=== PATIENT | female | born 1980 | race Caucasian/White ===

== ENCOUNTER 2024-02-06 02:54 | Observation (INO) | payer SELFPAY ==
[2024-02-06] VITALS (44 sets, daily range): BP systolic 137–169; BP diastolic 88–126; PULSE 75–115; RESP 8–24; TEMP 36.3–36.9; O2SAT 88–100; BMI 44.2; BMI 39.1
--- NOTE | 2024-02-06 03:17 | XRR_ITS ---
PROCEDURE INFORMATION: Exam: XR Chest Exam date and time: 02/06/2024 3:17 AM Age: 43 years old Clinical indication: Shortness of breath; Patient HX: C/O SOB. History of copd. TECHNIQUE: Imaging protocol: Radiologic exam of the chest. Views: 1 view. COMPARISON: No relevant prior studies available. FINDINGS: Lungs: Unremarkable. No consolidation. Pleural spaces: Unremarkable. No pleural effusion. No pneumothorax. Heart/Mediastinum: Unremarkable. No cardiomegaly. Bones/joints: Unremarkable. XR/XR chest 1V portable [id number] IMPRESSION: No acute findings.
--- NOTE | 2024-02-06 03:18 | ED_ITS ---
HPI - SOB/Dyspnea 2 General: Chief Complaint: Shortness of Breath/Dyspnea Stated Complaint: SOB Time Seen by Provider: 02/06/24 03:07 History of Present Illness: HPI Narrative: This 43-year-old female with a history of COPD evidently. She has been short of breath. She has been wheezing. She was doing a breathing treatment at home, and family noticed that she seemed to pass out. CPR was performed by bystanders/first responders. On EMS arrival, she was awake and able to answer questions. She received 2 breathing treatments, Solu-Medrol en route. She complains of chest pain and tenderness. Related Data Previous Rx's Medication Instructions Recorded albuterol sulfate 90 mcg/actuation 1 inh inhalation Q6H PRN shortness 02/07/24 aerosol inhaler (Ventolin HFA) of breath or wheezing #6.7 grams amlodipine 5 mg tablet 5 mg PO DAILY #30 tabs 02/07/24 aspirin 81 mg capsule 81 mg PO DAILY #30 caps 02/07/24 atorvastatin 40 mg tablet 40 mg PO BEDTIME #30 tabs 02/07/24 budesonide 0.5 mg/2 mL suspension 0.5 mg (2 mL) inhalation 02/07/24 for nebulization BID.RESPIRATORY #120 mL doxycycline monohydrate 100 mg 100 mg PO BID #10 tabs 02/07/24 tablet ipratropium 0.5 mg-albuterol 3 mg 3 ml inhalation QID.RESPIRATORY 02/07/24 (2.5 mg base)/3 mL nebulization #360 mL soln loratadine 10 mg capsule 10 mg PO DAILY #30 caps 02/07/24 metoprolol tartrate 25 mg tablet 25 mg PO BID@0900,2100 #60 tabs 02/07/24 montelukast 10 mg tablet 10 mg PO DAILY #30 tabs 02/07/24 (Singulair) Allergies Allergy/AdvReac Type Severity Reaction Status Date / Time No Known Allergies Allergy Verified 02/06/24 02:57 [facility] ED 2 Female Reproductive History: Date of last menstrual period: 02/06/24 Physical Exam 2 Const: EXAM LIMITATIONS: altered mental status GENERAL APPEARANCE: c ooperative, lethargic, ill appearing (Mildly) and appears older than stated age; not frail appearing NUTRITIONAL APPEARANCE: obese O RIENTATION/CONSCIOUSNESS: Yes lethargic HENMT: COMMON NORMALS: normocephalic, atraumatic and Normal external nose present HEAD & SCALP: normocephalic and atraumatic FACE & SINUS: normal facial exam and face symmetric NOSE: Normal external nose present Eye: COMMON NORMALS: Equal, round and reactive pupils present and EOMs intact bilaterally PUPIL: Yes Equal, round and reactive pupils present Neck/C-Spine: GENERAL: Yes trachea midline Chest: CHEST: Yes Symmetrical chest wall rise and Yes tenderness (Diffusely) Resp: EFFORT & INSPECTION: Yes tachypneic and No labored AUSCULTATION: w heezes Cardio: COMMON NORMALS: regular rhythm RATE: tachycardic RHYTHM: regular rhythm GI: COMMON NORMALS: Normal to inspection, nondistended, normoactive bowel sounds present Extremity: COMMON NORMALS: no pedal edema Neuro: [place] COMA SCALE: document GCS findings [place] coma scale eye opening: Spontaneous [place] coma scale verbal response: Orientated [place] coma scale motor response: Obey commands [place] coma scale total score: 15 S ENSORIUM/ORIENTATION: Yes lethargic SENSORY EXAM: Yes extremities (intact) Psych: COMMON NORMALS: speech normal SPEECH: Yes normal speech Skin: COMMON NORMALS: no rashes or lesions noted GENERAL SKIN EXAM: no rashes or lesions noted Course 2 Vital Signs: Vital signs: Vital Signs Temperature 98.1 F 02/07/24 11:58 Pulse Rate 94 02/07/24 13:01 Respiratory Rate 18 02/07/24 13:01 Blood Pressure 155/93 02/07/24 13:01 Pulse Oximetry 91 02/07/24 13:01 Oxygen Delivery Me thod Room Air 02/07/24 11:58 Oxygen Flow Rate 2 02/06/24 05:00 MDM - SOB/Dyspnea Medical Decision Making Patient arrives lethargic. She is requiring oxygen. Tachycardic. Improved after treatment. Her troponin is elevated. EKG not remarkable. D d-coleen is normal. With significant trop elevation without evidence of PE or significant HTN, other causes, ACS must be ruled out appropriately. She will be observed. serial troponins. continued treatment of SOB. Hospitalist will see the patient. Lab Data 02/07/24 04:02 02/07/24 04:02 Labs/Radiology: Radiology Impressions Chest X-Ray 02/06/24 03:17 IMPRESSION: No acute findings. Laboratory Results WBC 12.97 10^3/uL (3.29-11.43) H 02/06/24 03:45 RBC 4.96 10^6/uL (3.85-5.65) 02/06/24 03:45 Hgb 12.90 g/dL (11.27-16.99) 02/06/24 03:45 Hct 41.9 % (36-47) 02/06/24 03:45 MCV 84.5 fl (85-98) L 02/06/24 03:45 MCH 26.0 pg (27-33) L 02/06/24 03:45 MCHC 30.8 g/dL (30-55) 02/06/24 03:45 RDW 13.8 % (12.1-15.1) 02/06/24 03:45 Plt Count 444 10^3/cmm (157-399) H 02/06/24 03:45 MPV 8.7 fL (7.4-10.4) 02/06/24 03:45 Neut % (Auto) 77.5 % 02/06/24 03:45 Lymph % (Auto) 13.2 % 02/06/24 03:45 [place] % (Auto) 4.2 % 02/06/24 03:45 Eos % (Auto) 4.0 % 02/06/24 03:45 Baso % (Auto) 0.5 % 02/06/24 03:45 Neut # (Auto) 10.06 10^3/uL (1.8-7.7) H 02/06/24 03:45 Lymph # (Auto) 1.7 10^3/uL (0.8-4.8) 02/06/24 03:45 [place] # (Auto) 0.5 10^3/uL (0.2-0.9) 02/06/24 03:45 Eos # (Auto) 0.5 10^3/uL (0.0-0.8) 02/06/24 03:45 Baso # (Auto) 0.1 10^3/uL (0.0-0.1) 02/06/24 03:45 Nucleated RBC % (auto) 0 % 02/06/24 03:45 Nucleated RBCs # 0.0 /100WBC 02/06/24 03:45 D-Dimer 0.56 ug/mLFEU (0-0.59) 02/06/24 03:45 Specimen Type Arterial 02/06/24 03:41 Sample Site Brachial, right 02/06/24 03:41 ABG pH 7.45 (7.35-7.45) 02/06/24 03:41 ABG pCO2 32.5 mmHg (35-45) L 02/06/24 03:41 ABG pO2 58.3 mmHg (80.0-100.0) L 02/06/24 03:41 ABG HCO3 22.3 mmol/L (22-26) 02/06/24 03:41 ABG Base Excess -1.0 mmol/L (-2.0-2.0) 02/06/24 03:41 Panchito Test N/a 02/06/24 03:41 Hematocrit 41.1 % (37-47) 02/06/24 03:41 Hgb O2 Saturation 91.1 % (95-100) L 02/06/24 03:41 Carboxyhemoglobin 1.0 %THgb (0.4-20.1) 02/06/24 03:41 Methemoglobin 0.2 % (0.4-1.5) L 02/06/24 03:41 Total Hemoglobin 13.4 g/dL (-16) 02/06/24 03:41 O2 Delivery Device None 02/06/24 03:41 User Experience Analyst ID Sonny 02/06/24 03:41 Sodium 139 mmol/L (136-145) 02/06/24 03:45 Potassium 4.3 mmol/L (3.5-5.1) 02/06/24 03:45 Chloride 105 mmol/L (98-107) 02/06/24 03:45 Carbon Dioxide 24 mmol/L (22-29) 02/06/24 03:45 Anion Gap 14.3 (5-19) 02/06/24 03:45 BUN 15 mg/dL (6-20) 02/06/24 03:45 Creatinine 0.8 mg/dL (0.5-0.9) 02/06/24 03:45 GFR Calculation 77.6 mL/min (90-130) L 02/06/24 03:45 Glucose 134 mg/dL (65-115) H 02/06/24 03:45 Estimat Average Glucose 120 02/06/24 03:45 Hemoglobin A1c 5.8 % (4.0-6.0) 02/06/24 03:45 Calculated Osmolality 291 mOsm/kg (285-295) 02/06/24 03:45 Lactic Acid 2.6 mmol/L (0.5-2.2) H 02/06/24 03:45 Calcium 9.2 mg/dL (8.5-10.5) 02/06/24 03:45 Troponin T Baseline 61 ng/L (0-10) H 02/06/24 03:45 NT-Pro-B Natriuret Pep < 36 pg/mL (0-125) 02/06/24 03:45 Triglycerides 161 mg/dL (0-150) H 02/06/24 03:45 Cholesterol 221 mg/dL (0-200) H 02/06/24 03:45 LDL Cholesterol, Calc 145 mg/dL (50-129) H 02/06/24 03:45 HDL Cholesterol 44 mg/dL (60-100) L 02/06/24 03:45 LDL/HDL Ratio 3.30 RATIO (0.00-3.22) H 02/06/24 03:45 Cholesterol/HDL Ratio 5.02 mg/dL (0.0-4.40) H 02/06/24 03:45 Vitamin B12 482 pg/mL (232-1245) 02/06/24 03:45 Procalcitonin 0.04 ng/mL (0-0.5) 02/06/24 03:45 TSH 4.72 uIU/mL (0.27-4.20) H 02/06/24 03:45 Coronavirus (PCR) Negative (Negative) 02/06/24 04:06 Influenza A (PCR) Negative (Negative) 02/06/24 04:06 Influenza Type B (PCR) Negative (Negative) 02/06/24 04:06 RSV (PCR) Negative (Negative) 02/06/24 04:06 All radiology interpretation(s) finalized by discharge Discharge Plan Discharge Patient Disposition: Admitted As Inpatient Admit Provider: Dion Oswald Clinical Impression: Asthma exacerbation, Syncope, Marijuana use, Elevated troponin level Condition: Fair Discharge Diet: Cardiac Discharge Activity: Increase activity as tolerated Coding Level of Care Code ED Manager [employer] for [facility] Marian
[2024-02-06 03:53] LABS: ABG PCO2 32.5 mmHg (35-45); ABG PH Result 7.45 (7.35-7.45); Arterial Blood Gas Hematocrit 41.1 % (37-47); Blood Gas Operator Identificat SAM; Blood Gas Sample Site Brachial, right; Blood Gas Sample Type Arterial; HCO3 ABG 22.3 mmol/L (22-26); HGB O2 Sat 91.1 % (95-100); Methemoglobin 0.2 % (0.4-1.5); PO2 ABG 58.3 mmHg (80.0-100.0); Total Hemoglobin 13.4 g/dL (12-16)
[2024-02-06 04:07] LABS: Basophils # 0.1 10^3/uL (0.0-0.1); Basophils % 0.5 %; Eosinophils # 0.5 10^3/uL (0.0-0.8); Hematocrit 41.9 % (36-47); Lymphocytes # 1.7 10^3/uL (0.8-4.8); Lymphocytes % 13.2 %; Mean Corpuscular HGB Conc 30.8 g/dL (30-55); Mean Corpuscular Volume 84.5 fl (85-98); Mean Platelet Volume 8.7 fL (7.4-10.4); Monocytes # 0.5 10^3/uL (0.2-0.9); Monocytes % 4.2 %; Neutrophils # 10.06 10^3/uL (1.8-7.7); Neutrophils % 77.5 %; Nucleated Red Blood Cells % 0 %; Platelet Count 444 10^3/cmm (157-399); Red Blood Count 4.96 10^6/uL (3.85-5.65); Red Cell Distribution Width 13.8 % (12.1-15.1); White Blood Count 12.97 10^3/uL (3.29-11.43)
[2024-02-06] MEDS: ipratropium-albuterol 3 mL Neb INHALATION ×4 (04:39→20:15)
[2024-02-06 04:40] LABS: Lactic Sepsis W/Reflex 2.6 mmol/L (0.5-2.2)
[2024-02-06 04:44] LABS: Troponin(5th) Baseline 61 ng/L (0-10)
[2024-02-06 04:49] LABS: D Dimer 0.56 ug/mLFEU (0-0.59)
[2024-02-06 04:51] LABS: Anion Gap 14.3 (5-19); Blood Urea Nitrogen 15 mg/dL (6-20); Calcium 9.2 mg/dL (8.5-10.5); Carbon Dioxide 24 mmol/L (22-29); Chloride 105 mmol/L (98-107); Creatinine Clr Calc Pharmacy 107.6655; Glomerular Filtration Rate 77.6 mL/min (90-130); Glucose 134 mg/dL (65-115); NT Pro B Type Natriuretic Pept < 36 pg/mL (0-125); Osmolality Calculated 291 mOsm/kg (285-295); Potassium 4.3 mmol/L (3.5-5.1); Sodium 139 mmol/L (136-145)
[2024-02-06] MEDS: metoprolol tartrate 1 mg/1 mL SDV 5 mL 5 MG IVP (04:55)
[2024-02-06 05:06] LABS: Covid PCR NEGATIVE (Negative); Influenza A NEGATIVE (Negative); Influenza B NEGATIVE (Negative); Respiratory Syncytial Virus Ce NEGATIVE (Negative)
--- NOTE | 2024-02-06 05:09 | P.HP_ITS ---
Providers/Chief Complaint 2 Chief Complaint: SOB History of Present Illness Krystian Reyes is a 43 year old female who has a history of asthma, has been waking up at nighttime to take her Ventolin inhaler, had syncopal event last night, bystander her brother started CPR on her called EMS, patient arrived in the ER she was awake and alert not even requiring oxygen she is in sinus rhythm. White count is 12,000 Dr. Troponin 15 hemodynamically stable EKG showing sinus rhythm x-ray unremarkable. Patient is not endorsing recent chest pain, fever, nausea vomiting or diarrhea. Stating that she does use marijuana from medical dispensary. Does not smoke. No recent use of alcohol. Patient does not recall events after syncopal event stating that She remembers is waking up in the ER. At the time of evaluation there is no distress at all she is on room air saturating well no active chest pain hemodynamic stable looks euvolemic Review of Systems 2 Const: Reports: chills Eyes: Denies: change in vision ENMT: Denies: throat pain Card: Reports: chest pain Resp: Reports: dyspnea GI: Denies: abdominal pain : Denies: flank pain Medications/Allergies Allergies Allergy/AdvReac Type Severity Reaction Status Date / Time No Known Allergies Allergy Verified 02/06/24 02:57 PFSH Acute 2 Female Reproductive History: Date of last menstrual period: 02/06/24 Vitals/I&O/Wt Last Vital Signs Temp 97.4 F L 02/06/24 02:55 Pulse 90 02/06/24 05:00 Resp 14 02/06/24 05:00 BP 142/88 02/06/24 05:00 Pulse Ox 98 02/06/24 05:00 O2 Del Method Nasal Cannula 02/06/24 05:00 O2 Flow Rate 2 02/06/24 05:00 02/05/24 02/05/24 02/06/24 14:59 22:59 06:59 Intake Total 0 / 0 Balance 0 / 0 Weight last 48 hrs Weight 113.398 kg Physical Exam 2 Narrative: Patient is awake and alert Euvolemic GCS 15 On room air I do not appreciate any focal deficit No active chest pain No active respiratory distress No audible stridor or wheezing No active complaints Awake and alert Euvolemic Further at the bedside Nonfocal neuroexam Data 02/06/24 03:45 02/06/24 03:45 Micro: Microbiology 02/06/24 03:48 Blood Culture - Preliminary Blood SPECIMEN COLLECTED 02/06/24 03:45 Blood Culture - Preliminary Blood SPECIMEN COLLECTED A&P Assessment and plan (1) Marijuana use: (2) Syncope: (3) Asthma exacerbation: Plan Syncope Significant delta troponin noted I will give her therapeutic Lovenox Will require stress test for tomorrow morning Check free T4 and drug screen Rester panel is negative Patient endorses to using marijuana from a dispensary She is not requiring oxygen doing well on room air Afebrile Rester panel is negative Will request echo B12 D-dimer unremarkable to warrant CTA chest Clinically does not look fluid overloaded Anticipating discharge within 48 hours Cardiac diet for now DVT prophylaxis therapeutic Lovenox My suspicion is related to obstructive sleep apnea causing significant hypoxia with underlying asthma that probably could have caused syncopal event we will monitor her oxygen overnight Attestations 2 Medical Necessity Statement*: Anticipating discharge within 42 hours Diagnoses Marijuana use F12.90 Syncope R55 Asthma exacerbation J45.901
--- NOTE | 2024-02-06 05:10 | USCV_ITS ---
Krystian Reyes Age: 43 Gender: F : 1980 Exam Date: 02/06/2024 13:46 Ordering Phys: Mary Kay Duron MD Technologist: [place] [facility] [place]: cp sob BP: 162 / 100 HR: 97 Rhythm: Sinus Technical Quality: Adequate MEASUREMENTS (Male / Female) Normal Values 2D ECHO LV Diastolic Diameter PLAX 3.7 cm 4.2 - 5.9 / 3.9 - 5.3 cm IVS Diastolic Thickness 1.7 cm 0.6 - 1.0 / 0.6 - 0.9 cm IVS Systolic Thickness 2.0 cm LVPW Diastolic Thickness 1.2 cm 0.6 - 1.0 / 0.6 - 0.9 cm LVPW Systolic Thickness 1.8 cm LVOT Diameter 2.0 cm LV Ejection Fraction 2D Teich 62.8 % LV Ejection Fraction MOD 4C 54.4 % LV Ejection Fraction MOD 2C 59.5 % LV Ejection Fraction 2C AL 61.3 % LA Diameter 3.1 cm RA Systolic Volume 4C AL 29.8 ml RA Systolic Volume 4C MOD 28.7 ml Aorta at Sinotubular Diameter 2.6 cm M-MODE LA Ao Ratio MM 1.0 AV Cusp Separation MM 2.2 cm DOPPLER AV Peak Velocity 162.0 cm/s LVOT Peak Velocity 111.0 cm/s AV Area Cont Eq vti 2.4 cm squared AV Area Cont Eq pk 2.2 cm squared MV Peak Velocity 127.0 cm/s MV Area PHT 4.3 cm squared Mitral E to A Ratio 0.8 TV Peak Velocity 148.0 cm/s TR Peak Velocity 159.0 cm/s TR Peak Gradient 10.1 mmHg TV Peak E Velocity 91.0 cm/s PV Peak Velocity 133.0 cm/s FINDINGS Left Ventricle Left ventricle is normal in size. LV systolic function is normal with EF 55 to 60%. No regional wall motion abnormality is seen. Grade 1 diastolic dysfunction. Right Ventricle Normal in size and function Right Atrium Normal in size Left Atrium Normal in size Mitral Valve Structurally normal mitral valve. Mild mitral regurgitation Aortic Valve Structurally normal aortic valve. No significant stenosis or regurgitation. Tricuspid Valve Mild tricuspid regurgitation. Insufficient TR jet to evaluate RVSP. Pulmonic Valve Not well visualized Pericardium Normal Aorta Normal in size IVC Not well visualized CONCLUSIONS LV systolic function is normal with EF of 55 to 60%. Grade 1 diastolic dysfunction. Mild mitral regurgitation. Mild tricuspid regurgitation. No comparison studies are available. Bryce Carroll MD (Electronically Signed) Final Date: 06 February 2024 15:10 S
--- NOTE | 2024-02-06 05:17 | ECG_ITS ---
[facility] Date: 2024-[facility]06 Pat Name: Krystian Reyes Department: Room: Gender: Female Body Maker: : 1980 Requested By: Cristobal Lutz Order Number: [id number] Diana MD: Bernard Narayan M.D. Measurements Intervals [facility] Rate: 108 P: 69 NE: 151 QRS: 67 QRSD: 84 T: 74 QT: 344 QTc: 461 Interpretive Statements SINUS TACHYCARDIA ABNORMAL RHYTHM ECG No previous ECG available for comparison Electronically Signed On 02-06-2024 19:34:34 KNOBBER by Bernard Narayan M.D. [email or web address]
[2024-02-06 05:41] LABS: Reflex Lactate Order REFLEX LACTIC ORDERD
[2024-02-06] MEDS: piperacillin-tazobactam 3.375 GM in sodium chloride 0.9% (plus) 50 ML IV (05:52)
[2024-02-06] MEDS: enoxaparin 40 mg/0.4 mL Syringe SUBCUT (05:53)
[2024-02-06 05:55] LABS: Procalcitonin 0.04 ng/mL (0-0.5); Thyroid Stimulating Hormone 4.72 uIU/mL (0.27-4.20); Vitamin B12 482 pg/mL (232-1245)
[2024-02-06 06:07] LABS: Troponin 5 2HR 76.36 ng/L (0-10)
[2024-02-06 06:08] LABS: Troponin 5 2HR Delta 15.36 ABS# (0-10)
--- NOTE | 2024-02-06 07:14 | PC.PHAR ---
patient says she uses an inhaler and a breathing treatment but is not on her external list. pharmacy opens at 9am will call to follow up when they open
[2024-02-06 07:51] LABS: Lactic Acid level (Lactate) 2.8 mmol/L (0.5-2.2)
--- NOTE | 2024-02-06 07:54 | W.PM.EVENTAC ---
Event Note Event Note: History and physical reviewed. Interviewed patient. Care assumed. Has had multiple episodes, of chest pressure and feeling very short of breath occurring in the morning. She has been concerned this relates to her asthma or wheezing for which she only has albuterol. She no longer has a primary care provider. Does have a very strong history of coronary disease, usually around the age of 50 and her family. Has some chest discomfort currently, hurts when she breathes in and presses on her chest consistent with the CPR she had performed. Check echo. Continue full anticoagulation. Add aspirin, statin. Cardiology consult.
--- NOTE | 2024-02-06 07:55 | ECG_ITS ---
[facility] Test Date: 2024-02-07 Pat Name: Krystian Reyes Department: Room: 112 Gender: Female Crm Marketing Manager: : 1980 Requested By: Mary Kay Duron Order Number: [id number] Reading MD: Interpretive Statements Lung unchanged pre/post procedure; Intraprocedure shortess of breath; Symptoms resoled by discharge [id number]
[2024-02-06 08:09] LABS: Estmated Average Glucose 120; Hemoglobin A1C 5.8 % (4.0-6.0)
[2024-02-06] MEDS: budesonide 0.5 mg/2 mL Neb INHALATION ×2 (08:35→20:15)
[2024-02-06] MEDS: enoxaparin 80 mg/0.8 mL Syringe 70 MG SUBCUT (09:00)
[2024-02-06] MEDS: aspirin 325 mg EC Tablet PO (09:01)
[2024-02-06] MEDS: doxycycline 100 mg Tablet PO ×2 (09:01→17:39)
[2024-02-06 10:10] LABS: Amphetamines Screen Urine Negative (Negative); Barbiturates Screen Urine Negative (Negative); Benzodiazepines Screen Urine Negative (Negative); Cocaine Screen Urine Negative (Negative); Opiate Screen Urine Negative (Negative); PCP Screen Urine Negative (Negative); THC Screen Urine Positive (Negative)
[2024-02-06 10:26] LABS: Troponin 5 6HR 55.08 ng/L (0-10)
[2024-02-06 10:27] LABS: Troponin 5 6HR Delta -5.92 ng/L (0-12)
[2024-02-06] MEDS: acetaminophen 500 mg Tablet PO (11:50)
[2024-02-06] MEDS: oxyCODONE 5 mg IR Tab/Cap PO ×2 (12:52→20:47)
[2024-02-06] MEDS: amlodipine 5 mg Tablet PO (12:53)
--- NOTE | 2024-02-06 14:42 | P.CONIM_ITS ---
<Statement entered by Bryce Carroll M.D - 02/06/24 20:17> Patient was evaluated and cared for in conjunction with an advanced practice practitioner.? I personally examined the patient and reviewed the chart and all pertinent data including imaging, telemetry, and laboratory results.? I discussed the patient in detail with the advanced practice practitioner.? Please see? their note for complete consult note, testing result and agreed upon plan of care for the patient. Briefly patient presented with loss of consciousness and CPR by family at home. Has chest soreness. No ST T wave changes on EKG. Troponins were mildly elevated but did not trend up significantly. Events prior to CPR not clear however patient says she was taking a breathing treatment and lost consciousness and does not remember any further details GENERAL: Patient is alert, awake and oriented x3. HEART: Regular S1 and S2 LUNGS: Clear to auscultate bilaterally. CENTRAL NERVOUS SYSTEM: Grossly nonfocal. EXTREMITIES: Lower extremities with out edema bilaterally. Assessment and Plan Syncope Chest pain Troponin elevation Troponin elevation likely secondary to chest compressions. No significant uptrend. No EKG changes. Recommend stress test to further assess for ischemia as has significant family history of CAD and has hypertension/prediabetes. ECHO shows normal LV systolic function. Thank you for involving us with care of this patient. We will continue to follow. Please call with questions. Providers/Reason For Consult 2 Consulting Physician/Specialty*: Dr. Carroll Reason for Consult*: Chest pain, elevated troponin Requesting Physician: Dr. Oswald Attending Physician: Dion Oswald MD History of Present Illness History of Present Illness This is a very pleasant 43-year-old female who came in to the ER today around 3 in the morning. She states that she had an asthma attack and was getting a breathing treatment and passed out. States she does not know how long. She states her started doing CPR on her and then they went to the ER when she was fully responsive. At this time she states she has some mild pressure at the center of her chest. She states it is not severe pain. She states she has had issues with syncope in the past when she had really elevated blood pressure readings. Baseline troponin elevated at 61. Trending up to 76 at 120 minutes and 55 at 6 hours with positive delta. She denies ever smoking cigarettes but states she does smoke marijuana. Reports history of hypertension. A1c at 5.8 which indicates prediabetes. Denies history of high cholesterol although this does not appear to have been checked recently. EKG showed sinus tach with no acute ST elevation or T wave abnormalities. Current medication includes aspirin statin and Lovenox and amlodipine 5 mg. Kidney function is normal. Current blood pressure elevated in the 160s. Heart rate 90s Review of Systems 2 Narrative: Consitutional: denies fever, chills, body aches, or changes in appetite, denies abnormal weight loss Eyes: Denies changes in vision Card: Denies chest pain reports chest pressure at the center of her chest more so with deep inspiration consistent with recent CPR, denies palpitations, irregular heart rhythm, edema, syncope, shortness of breath, orthopnea, leg pain with exertion Resp: Denies shortness of breath, denies hemoptysis, denies cough GI: denies abdominal pain, denies nausea or voimting, denies blood in stool : denies blood in urine, denies dysuria Musc: Denies extremity pain, denies limited range of motion or recent injury Skin: Denies rash, lesions, or wounds, denies changes to skin color Neuro: Denies nubmness in extremities, h/a, s/s of stroke Claude: Denies easy bruiding/bleeding All: Denies s/s of allergies Medications/Allergies Home Medications Medication Instructions Recorded Confirmed Last Taken Type No Known Home Medications 02/06/24 02/06/24 Unknown History Allergies Allergy/AdvReac Type Severity Reaction Status Date / Time No Known Allergies Allergy Verified 02/06/24 02:57 Current Medications Generic Name Dose Route Start Last Admin Trade Name Blue PRN Reason Stop Dose Admin Acetaminophen 500 mg 02/06/24 05:09 02/06/24 11:50 Acetaminophen 500 Mg Tablet PO 500 mg Q4H PRN Administration fever Albuterol/Ipratropium 3 ml 02/06/24 08:00 02/06/24 14:23 Ipratropium-Albuterol 3 Ml Neb INHALATION 3 ml Q6H ADAMS Administration Amlodipine Besylate 5 mg 02/06/24 12:30 02/06/24 12:53 Amlodipine 5 Mg Tablet PO 5 mg DAILY ADAMS Administration Aspirin 325 mg 02/06/24 09:00 02/06/24 09:01 Aspirin 325 Mg Ec Tablet PO 325 mg DAILY ADAMS Administration Budesonide 0.5 mg 02/06/24 08:00 02/06/24 08:35 Budesonide 0.5 Mg/2 Ml Neb INHALATION 0.5 mg BID.RESPIRATORY ADAMS Administration Doxycycline Monohydrate 100 mg 02/06/24 09:00 02/06/24 09:01 Doxycycline 100 Mg Tablet PO 100 mg BID ADAMS Administration Protocol Oxycodone HCl 5 mg 02/06/24 08:18 02/06/24 12:52 Oxycodone 5 Mg Ir Tab/Cap PO 5 mg Q4H PRN Administration MODERATE PAIN Senna/Docusate Sodium 1 tab 02/06/24 09:00 02/06/24 09:01 Sennosides-Docusate Tablet PO Not Given DAILY ADAMS PFSH Acute 2 Female Reproductive History: Date of last menstrual period: 02/06/24 Vitals/I&O/Wt Last Vital Signs Temp 98.4 F 02/06/24 12:00 Pulse 94 02/06/24 14:00 Resp 16 02/06/24 14:00 BP 162/106 02/06/24 12:00 Pulse Ox 92 02/06/24 14:00 O2 Del Method Room Air 02/06/24 14:00 O2 Flow Rate 2 02/06/24 05:00 02/05/24 02/06/24 02/06/24 22:59 06:59 14:59 Intake Total 0 / 0 290 / 290 Output Total 300 / 300 Balance 0 / 0 -10 / -10 Weight last 48 hrs Weight 250 lb Physical Exam 2 Narrative: General: No apparent distress, healthy appearing, well nourished HENMT: normoceophalic Eye: PERRL Neck: No carotid bruit bilaterally Muskuloskeletal: Full ROM Lymphatic: no lymphedema noted Respiratory: Normal respiratory effort, clear to auscultation bilaterally throughout all lung concepcion, no use of accessory muscles Cardio: No JVD, regular rate, regular rhythm, S1 S2 normal, no murmurs, peripheral pulses 2+ throughout GI: Normal to inspection, nondistended Extremities: Full ROM, normal, normal capillary refill, no cyanosis or edema Neuro: Alert and oriented x4, no focal motor deficits Psych: Affect normal, denies suicidal ideation, mental status grossly normal Skin: No rashes or lesions noted, no wounds Data 02/06/24 03:45 02/06/24 03:45 Micro: Microbiology 02/06/24 03:48 Blood Culture - Preliminary Blood SPECIMEN COLLECTED 02/06/24 03:45 Blood Culture - Preliminary Blood SPECIMEN COLLECTED A&P Assessment and plan (1) Syncope: (2) Asthma exacerbation: (3) Prediabetes: (4) Essential hypertension: Plan At this time the plan for this very pleasant 43-year-old female patient is to get an echocardiogram to get a stress test. At this time her chest pressure may be related to CPR although underlying coronary disease has to be ruled out due to family history as well as personal risk factors including hypertension and prediabetes. Will check cholesterol panel. Will go ahead and start the patient on metoprolol 25 mg twice daily for tachycardia as well as hypertension. Further recommendations to be made after echo and stress test. Thank you for allowing us to take care of this very pleasant patient. Consult Attestations 2 Medical Necessity Statement: Defer to primary. Coding Level of Care Code Acute Code for [facility] Fwd Diagnoses Syncope R55 Asthma exacerbation J45.901 Prediabetes R73.03 Essential hypertension I10
[2024-02-06 15:15] LABS: Chol HDL Ratio 5.02 mg/dL (0.0-4.40); Cholesterol 221 mg/dL (0-200); HDL Cholesterol 44 mg/dL (60-100); LDL Cholesterol Calculated 145 mg/dL (50-129); Triglycerides 161 mg/dL (0-150)
[2024-02-06] MEDS: enoxaparin 120 mg/0.8 mL Syringe 110 MG SUBCUT (20:46)
[2024-02-06] MEDS: metoprolol tartrate 25 mg Tablet PO (20:47)
[2024-02-06] MEDS: atorvastatin 40 mg Tablet PO (20:48)
[2024-02-07] VITALS (12 sets, daily range): BP systolic 122–167; BP diastolic 79–108; PULSE 82–102; RESP 13–20; TEMP 36.4–36.9; O2SAT 90–96
[2024-02-07] MEDS: ipratropium-albuterol 3 mL Neb INHALATION ×4 (01:53→11:38)
[2024-02-07 04:41] LABS: Basophils % 0.2 %; Eosinophils % 0.1 %; Hematocrit 39.4 % (36-47); Lymphocytes # 3.1 10^3/uL (0.8-4.8); Lymphocytes % 19.7 %; Mean Corpuscular Hemoglobin 26.1 pg (27-33); Mean Corpuscular Volume 84.4 fl (85-98); Mean Platelet Volume 8.7 fL (7.4-10.4); Monocytes % 6.3 %; Neutrophils # 11.33 10^3/uL (1.8-7.7); Neutrophils % 72.9 %; Nucleated Red Blood Cells % 0 %; Platelet Count 418 10^3/cmm (157-399); Red Blood Count 4.67 10^6/uL (3.85-5.65); Red Cell Distribution Width 14.2 % (12.1-15.1); White Blood Count 15.55 10^3/uL (3.29-11.43)
[2024-02-07 05:00] LABS: Anion Gap 13.1 (5-19); Blood Urea Nitrogen 14 mg/dL (6-20); Calcium 9.1 mg/dL (8.5-10.5); Carbon Dioxide 24 mmol/L (22-29); Chloride 106 mmol/L (98-107); Creatinine Clr Calc Pharmacy 113.7729; Glomerular Filtration Rate 90.5 mL/min (90-130); Glucose 111 mg/dL (65-115); Magnesium 1.9 mg/dL (1.7-2.3); Osmolality Calculated 289 mOsm/kg (285-295); Potassium 4.1 mmol/L (3.5-5.1); Sodium 139 mmol/L (136-145)
[2024-02-07 05:12] LABS: Chol HDL Ratio 4.58 mg/dL (0.0-4.40); Cholesterol 220 mg/dL (0-200); HDL Cholesterol 48 mg/dL (60-100); LDL Cholesterol Calculated 136 mg/dL (50-129); LDL HDL Ratio 2.83 RATIO (0.00-3.22); Triglycerides 179 mg/dL (0-150)
[2024-02-07 06:29] LABS: ABG PCO2 34.4 mmHg (35-45); ABG PH Result 7.44 (7.35-7.45); Arterial Blood Gas Hematocrit 38.4 % (37-47); Base Excess ABG -0.5 mmol/L (-2.0-2.0); Blood Gas Sample Site Brachial, left; Blood Gas Sample Type Arterial; HCO3 ABG 23.2 mmol/L (22-26); Oxygen Device ROOM AIR; PO2 ABG 92.3 mmHg (80.0-100.0)
[2024-02-07] MEDS: regadenoson 0.4 Mg/5 ml Syringe IVP (07:15)
[2024-02-07] MEDS: aminophylline 25 mg/mL SDV 20 mL IVP (07:20)
--- NOTE | 2024-02-07 07:55 | NMCV_ITS ---
NM mandy perf SPECT r/s* [id number] Krystian Reyes Age: 43 Gender: F : 1980 Exam Date: 02/07/2024 07:55 Ordering Phys: Mary Kay Duron MD Technologist: CORINA Rios Exam Location: [facility] Indications: cp STRESS TEST Please see separate stress test report in [facility] for full findings IMAGE PROTOCOL Rest/Stress 1 Lexiscan Day Radiopharmaceutical Dose (mCi) Administration Site Administered by Rest: Tc-99m 10.9 IV Radha Blackburn, PANEL FLOW MACHINE OPERATOR Sestamibi Stress:Tc-99m 32.7 IV Radha Albagle, PANEL FLOW MACHINE OPERATOR Sestamibi Rest: 07-Feb-2024 60 Discovery 630 Stress: 07-Feb-2024 30 Discovery 630 0.4mg Lexiscan. Images obtained in supine and prone position. SPECT RESULTS Technical Quality: Good Raw Data Analysis: Breast attenuation Image Corrections: No attenuation or motion correction applied Summed Stress Score: 3 Summed Rest Score: 10 Summed Difference Score: 0 PERFUSION FINDINGS There is a medium to small sized area of partially reversible perfusion defect seen in inferolateral wall. This is consistent with small to medium sized area of prior infarct with small area of oh-infarct ischemia in the left circumflex artery territory. Attenuation artifact is seen in anterior wall. FUNCTIONAL RESULTS (calculated via Gated SPECT) Stress Image LV EF (%): 63 Stress EDV (mL):93 TID: 1.09 Stress ESV (mL):34 FUNCTIONAL FINDINGS: There is normal left ventricular systolic function. IMPRESSIONS 1. 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 LV systolic function is normal Bryce Carroll MD (Electronically Signed) Final Date: 07 February 2024 10:55 S
[2024-02-07] MEDS: budesonide 0.5 mg/2 mL Neb INHALATION (08:27)
--- NOTE | 2024-02-07 09:00 | PC.PHAR ---
patient states again she uses some sort of an inhaler and i told her there is no record of it and she said i know its been a hot minute felicia just been using the same inhaler for years... no pharmacy has any current scripts for this patient. no known is correct at this time
[2024-02-07] MEDS: enoxaparin 120 mg/0.8 mL Syringe 110 MG SUBCUT (09:17)
[2024-02-07] MEDS: sennosides-docusate Tablet 1 TAB PO (09:17)
[2024-02-07] MEDS: aspirin 325 mg EC Tablet PO (09:18)
[2024-02-07] MEDS: metoprolol tartrate 25 mg Tablet PO (09:18)
[2024-02-07] MEDS: amlodipine 5 mg Tablet PO (09:18)
[2024-02-07] MEDS: doxycycline 100 mg Tablet PO (09:18)
--- NOTE | 2024-02-07 10:07 | PC.CHAP ---
Pastoral Care Encounter/Spiritual Assessment Type of Contact [] Declined hand plug shaper visit [] Patient/Family/Request visit [] Outpatient visit [] Follow-up visit [] Physician referral [] Code/Alert [x] Routine visit [] Staff referral [] Actively dying [] Patient sleeping [] Family support [] [] Out of room [] Palliative care [] [] Receiving care in room [] Pre-surgical visit [] Trauma [] Long length of stay [] ICU visit [] Other: Relational/Emotional Strength [x] Patient feels connected with others/family/visitors/staff [] Distress [] Loneliness/isolation [] Abandonment Spirituality of Patient [x] Person of Leeanne [] Attends Roman Catholic of their Leeanne [x] Believes in Prayer [] Reads Bible or Mormonism materials [] There are Spiritual issues to be addressed Hemodialysis Technician Interventions [] Prayer [x] Active listening [x] Non-anxious presence [x] Spiritual/emotional support [] Crisis/trauma care [] Spiritual counseling [] Bereavement support [] Provided bereavement packet [] Provided Bible/devotional materials [] Provided toy/stuffed animal, coloring book to patient or family member [] Provided Communion [] Anointing/[place] [] Salvation [] Completed spiritual assessment [x] Other: Nurse came in. Will return for prayer. Impact on Illness or Injury [] Angry [] Fearful [] Anxious [] Often cries [] Exhaustion [] Unable to work [] Unable to attend confucianist [] Unable to walk/stand [] Unable to read [] Unable to drive [] Unable to eat/drink [] Unable to sleep [] Unable to be with family [] Patient intubated [] Other: Summary Time spent with patient 5 min
[2024-02-07 10:25] LABS: Bilirubin Urine Negative (Negative); Blood Urine 3+ (Negative); Glucose Urine UA Negative (Normal); Ketones Urine Negative (Negative); Leukocyte Esterase Urine Negative (Negative); Nitrate Urine Negative (Negative); Protein Urine Negative (Negative); Specific Gravity, Urine 1.018 (1.005-1.030); Urine Appearance Clear (CLEAR); Urine Color Yellow (Yellow); Urobilinogen Urine 0.2 mg/dL (Negative); pH Urine 5.5 (5-7)
[2024-02-07 10:28] LABS: Bacteria Urine None Seen /hpf; Hyaline Casts Urine 1.21 /lpf; RBC Urine >100 /hpf (0-2); Squamous Epithelial Cell Urine 0-5 /hpf (0-5); WBC Urine 0-5 /hpf (0-5)
[2024-02-07 10:31] LABS: Add Urine Culture? Yes
--- NOTE | 2024-02-07 11:13 | P.PN_ITS ---
<Statement entered by Bryce Carroll M.D - 02/07/24 14:49> Patient was evaluated and cared for in conjunction with an advanced practice practitioner.? I personally examined the patient and reviewed the chart and all pertinent data including imaging, telemetry, and laboratory results.? I discussed the patient in detail with the advanced practice practitioner.? Please see? their note for complete consult note, testing result and agreed upon plan of care for the patient. Patient feeling well. No chest pain. GENERAL: Patient is alert, awake and oriented x3. HEART: Regular S1 and S2 LUNGS: Clear to auscultate bilaterally. CENTRAL NERVOUS SYSTEM: Grossly nonfocal. EXTREMITIES: Lower extremities with out edema bilaterally. Assessment and Plan Syncope Chest pain Troponin elevation Stress test showed small to medium sized area of prior infarct with small area of oh-infarct ischemia seen in left circumflex artery territory. Patient does not have symptoms concerning for CAD. I had a detailed discussion regarding all options including continuing with medical therapy and invasive workup. Shared decision made to continue with medical therapy. She will follow-up with cardiology in 2 weeks. In future if she has typical anginal symptoms, can proceed with invasive workup Thank you for involving us with care of this patient. Please call with questions. Subjective 2 Subjective: Patient doing well without chest pain or shortness of breath. Beta aaron was started yesterday evening. Will see how she responds to this. Stress test was done that showed: IMPRESSIONS 1. 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 LV systolic function is normal Medications: Reviewed: Yes Vitals/I&O/Wt Last Vital Signs Temp 97.6 F 02/07/24 08:00 Pulse 97 02/07/24 08:00 Resp 18 02/07/24 08:00 BP 167/108 02/07/24 08:00 Pulse Ox 95 02/07/24 08:00 O2 Del Method Room Air 02/07/24 08:00 O2 Flow Rate 2 02/06/24 05:00 02/06/24 02/07/24 02/07/24 22:59 06:59 14:59 Intake Total 260 / 550 480 / 480 Balance 260 / 250 480 / 480 Weight last 48 hrs Weight 221 lb 9.033 oz Weight 218 lb 1.6 oz Weight 220 lb 14.451 oz Weight 250 lb Physical Exam 2 Narrative: General: No apparent distress, healthy appearing, well nourished HENMT: normoceophalic Eye: PERRL Neck: No carotid bruit bilaterally Muskuloskeletal: Full ROM Lymphatic: no lymphedema noted Respiratory: Normal respiratory effort, clear to auscultation bilaterally throughout all lung concepcion, no use of accessory muscles Cardio: No JVD, regular rate, regular rhythm, S1 S2 normal, no murmurs, peripheral pulses 2+ throughout GI: Normal to inspection, nondistended Extremities: Full ROM, normal, normal capillary refill, no cyanosis or edema Neuro: Alert and oriented x4, no focal motor deficits Psych: Affect normal, denies suicidal ideation, mental status grossly normal Skin: No rashes or lesions noted, no wounds Data 02/07/24 04:02 02/07/24 04:02 Micro: Microbiology 02/06/24 03:48 Blood Culture - Preliminary Blood NEGATIVE TO DATE 02/06/24 03:45 Blood Culture - Preliminary Blood NEGATIVE TO DATE A&P Assessment and plan (1) Syncope: (2) Asthma exacerbation: (3) Prediabetes: (4) Essential hypertension: Plan At this time patient is without chest pain or shortness of breath. Blood pressure still elevated but beta-aaron was just started yesterday evening. Will see how she responds. Patient's stress test showed small to moderate area of previous infarct and small area of oh-infarct ischemia in the circumflex region. Discussed with the family possibly treating medically. At this time, she agrees as she is not having any chest pain and this is most likely artifact. She will f/u outpatient in the clinic. From a cardiology standpoint, may be discharged with f/u appointment. Attestations 2 Medical Necessity Statement*: Defer to primary. Coding Level of Care Code Acute Code for [facility] Fwd Diagnoses Syncope R55 Asthma exacerbation J45.901 Prediabetes R73.03 Essential hypertension I10
--- NOTE | 2024-02-07 12:22 | PM.DCS ---
Discharge Providers Date of Admission: 02/06/24 05:19 Date of Discharge: February 07, 2024 Attending Provider at Admission: Dion Oswald MD Attending Provider at Discharge: Dion Oswald MD Diagnoses at Discharge Discharge Diagnosis (1) Syncope: Status: Acute (2) Asthma exacerbation: Status: Acute (3) Prediabetes: Status: Acute (4) Essential hypertension: Status: Acute Reason for Visit Reason for Visit: SOB Hospital Course Hospital Course Patient is a 43-year-old white female who presents with complaints of receiving CPR. She reports she has had some issues with some asthma, pharmacy laboratory technician shortness of breath, wheezing, chest discomfort. During morning of admission there was a syncopal episode, brother did not believe she had a pulse, and CPR was initiated. When she was brought into the emergency department she was alert, oriented. She was not actively wheezing. She was placed on doxycycline, telemetry. Troponin was high so aspirin, statin, beta-aaron was all initiated. During hospital course she had no recurrence of syncopal episodes. No arrhythmia was noted. Echocardiogram was largely normal. Nuclear stress test was performed demonstrating small to medium sized area of prior infarct with small area of oh-infarct ischemia. Cardiology reviewed with the patient this finding, and medical treatment was agreed to. She will discharge, in stable condition currently, for follow-up with cardiology in 2 weeks and her primary care provider in 3 to 5 days. Medication was initiated for aspirin, statin, beta-aaron as well as DuoNeb, Singulair, loratadine, budesonide. She was able to ask questions and agreed with the plan. I encouraged her to get sleep apnea testing as an outpatient. She will complete a short course of doxycycline. D-dimer was checked during her hospital stay and negative. Urine did have some blood in it, however she patient reports she is currently on her menstrual cycle. hCG was negative. Physical Exam Narrative: General Exam no distress Neck is supple Cardiovascular regular rate rhythm Lungs clear Abdomen soft Extremities no cyanosis clubbing or edema Discharge Data Studies Completed and Pending Completed Studies During Hospitalization Category Date Time Status Sestamibi Stress Test Request Routine Exams 02/06/24 07:55 Draft XR chest 1V portable [id number] Stat Exams 02/06/24 03:17 Completed NM mandy perf SPECT r/s* [id number] Routine Nuc Med 02/07/24 07:55 Completed CV. echo complete* [id number] Routine Ultrasound 02/06/24 05:10 Completed Pending at discharge Category Date Time Status Blood Culture Stat Lab 02/06/24 03:48 Results Urine Culture Routine Lab 02/07/24 09:15 Received Radiology Impressions Chest X-Ray 02/06/24 03:17 IMPRESSION: No acute findings. Laboratory Results WBC 15.55 10^3/uL (3.29-11.43) H 02/07/24 04:02 RBC 4.67 10^6/uL (3.85-5.65) 02/07/24 04:02 Hgb 12.20 g/dL (11.27-16.99) 02/07/24 04:02 Hct 39.4 % (36-47) 02/07/24 04:02 MCV 84.4 fl (85-98) L 02/07/24 04:02 MCH 26.1 pg (27-33) L 02/07/24 04:02 MCHC 31.0 g/dL (30-55) 02/07/24 04:02 RDW 14.2 % (12.1-15.1) 02/07/24 04:02 Plt Count 418 10^3/cmm (157-399) H 02/07/24 04:02 MPV 8.7 fL (7.4-10.4) 02/07/24 04:02 Neut % (Auto) 72.9 % 02/07/24 04:02 Lymph % (Auto) 19.7 % 02/07/24 04:02 [place] % (Auto) 6.3 % 02/07/24 04:02 Eos % (Auto) 0.1 % 02/07/24 04:02 Baso % (Auto) 0.2 % 02/07/24 04:02 Neut # (Auto) 11.33 10^3/uL (1.8-7.7) H 02/07/24 04:02 Lymph # (Auto) 3.1 10^3/uL (0.8-4.8) 02/07/24 04:02 [place] # (Auto) 1.0 10^3/uL (0.2-0.9) H 02/07/24 04:02 Eos # (Auto) 0.0 10^3/uL (0.0-0.8) 02/07/24 04:02 Baso # (Auto) 0.0 10^3/uL (0.0-0.1) 02/07/24 04:02 Nucleated RBC % (auto) 0 % 02/07/24 04:02 Nucleated RBCs # 0.0 /100WBC 02/07/24 04:02 D-Dimer 0.56 ug/mLFEU (0-0.59) 02/06/24 03:45 Specimen Type Arterial 02/07/24 06:18 Sample Site Brachial, left 02/07/24 06:18 ABG pH 7.44 (7.35-7.45) 02/07/24 06:18 ABG pCO2 34.4 mmHg (35-45) L 02/07/24 06:18 ABG pO2 92.3 mmHg (80.0-100.0) 02/07/24 06:18 ABG HCO3 23.2 mmol/L (22-26) 02/07/24 06:18 ABG Base Excess -0.5 mmol/L (-2.0-2.0) 02/07/24 06:18 [place] Test N/a 02/07/24 06:18 Hematocrit 38.4 % (37-47) 02/07/24 06:18 Hgb O2 Saturation 91.1 % (95-100) L 02/06/24 03:41 Carboxyhemoglobin 1.0 %THgb (0.4-20.1) 02/06/24 03:41 Methemoglobin 0.2 % (0.4-1.5) L 02/06/24 03:41 Total Hemoglobin 13.4 g/dL (12-16) 02/06/24 03:41 O2 Delivery Device Room air 02/07/24 06:18 Superintendent Sanitation ID [email or web address] 02/07/24 06:18 Sodium 139 mmol/L (136-145) 02/07/24 04:02 Potassium 4.1 mmol/L (3.5-5.1) 02/07/24 04:02 Chloride 106 mmol/L (98-107) 02/07/24 04:02 Carbon Dioxide 24 mmol/L (22-29) 02/07/24 04:02 Anion Gap 13.1 (5-19) 02/07/24 04:02 BUN 14 mg/dL (6-20) 02/07/24 04:02 Creatinine 0.7 mg/dL (0.5-0.9) 02/07/24 04:02 GFR Calculation 90.5 mL/min (90-130) 02/07/24 04:02 Glucose 111 mg/dL (65-115) 02/07/24 04:02 Estimat Average Glucose 120 02/06/24 03:45 Hemoglobin A1c 5.8 % (4.0-6.0) 02/06/24 03:45 Calculated Osmolality 289 mOsm/kg (285-295) 02/07/24 04:02 Lactic Acid 2.6 mmol/L (0.5-2.2) H 02/06/24 03:45 Lactic Acid (Sepsis) 2.8 mmol/L (0.5-2.2) H 02/06/24 07:16 Calcium 9.1 mg/dL (8.5-10.5) 02/07/24 04:02 Magnesium 1.9 mg/dL (1.7-2.3) 02/07/24 04:02 Troponin T Baseline 61 ng/L (0-10) H 02/06/24 03:45 Troponin T 120 Minute 76.36 ng/L (0-10) H 02/06/24 05:38 Delta Troponin T 15.36 ABS# (0-10) H* 02/06/24 05:38 Troponin T Hi Sens 6Hr 55.08 ng/L (0-10) H 02/06/24 09:35 Troponin T Hi Sens 6Hr Delta -5.92 ng/L (0-12) L 02/06/24 09:35 NT-Pro-B Natriuret Pep < 36 pg/mL (0-125) 02/06/24 03:45 Triglycerides 179 mg/dL (0-150) H 02/07/24 04:02 Cholesterol 220 mg/dL (0-200) H 02/07/24 04:02 LDL Cholesterol, Calc 136 mg/dL (50-129) H 02/07/24 04:02 HDL Cholesterol 48 mg/dL (60-100) L 02/07/24 04:02 LDL/HDL Ratio 2.83 RATIO (0.00-3.22) 02/07/24 04:02 Cholesterol/HDL Ratio 4.58 mg/dL (0.0-4.40) H 02/07/24 04:02 Vitamin B12 482 pg/mL (232-1245) 02/06/24 03:45 Procalcitonin 0.04 ng/mL (0-0.5) 02/06/24 03:45 TSH 4.72 uIU/mL (0.27-4.20) H 02/06/24 03:45 Urine Color Yellow (Yellow) 02/07/24 09:15 Urine Appearance Clear (CLEAR) 02/07/24 09:15 Urine pH 5.5 (5-7) 02/07/24 09:15 Ur Specific [place] 1.018 (1.005-1.030) 02/07/24 09:15 Urine Protein Negative (Negative) 02/07/24 09:15 Urine Glucose (UA) Negative (Normal) 02/07/24 09:15 Urine Ketones Negative (Negative) 02/07/24 09:15 Urine Blood 3+ (Negative) A 02/07/24 09:15 Urine Nitrate Negative (Negative) 02/07/24 09:15 Urine Bilirubin Negative (Negative) 02/07/24 09:15 Urine Urobilinogen 0.2 mg/dL (Negative) 02/07/24 09:15 Ur Leukocyte Esterase Negative (Negative) 02/07/24 09:15 Urine RBC >100 /hpf (0-2) H 02/07/24 09:15 Urine WBC 0-5 /hpf (0-5) 02/07/24 09:15 Ur Squamous Epith Cells 0-5 /hpf (0-5) 02/07/24 09:15 Amorphous Sediment Not Reportable 02/07/24 09:15 Urine Bacteria None seen /hpf (NONE) 02/07/24 09:15 Hyaline Casts 1.21 /lpf 02/07/24 09:15 Urine Opiates Screen Negative ng/mL (Negative) 02/06/24 09:25 Ur Barbiturates Screen Negative ng/mL (Negative) 02/06/24 09:25 Ur Phencyclidine Scrn Negative ng/mL (Negative) 02/06/24 09:25 Ur Amphetamines Screen Negative ng/mL (Negative) 02/06/24 09:25 U Benzodiazepines Scrn Negative ng/mL (Negative) 02/06/24 09:25 Urine Cocaine Screen Negative ng/mL (Negative) 02/06/24 09:25 U Marijuana (THC) Screen Positive ng/mL (Negative) H 02/06/24 09:25 Coronavirus (PCR) Negative (Negative) 02/06/24 04:06 Influenza A (PCR) Negative (Negative) 02/06/24 04:06 Influenza Type B (PCR) Negative (Negative) 02/06/24 04:06 RSV (PCR) Negative (Negative) 02/06/24 04:06 Vitals Last Vital Signs Temp 98.1 F 02/07/24 11:58 Pulse 94 02/07/24 11:58 Resp 17 02/07/24 11:58 BP 155/93 02/07/24 11:58 Pulse Ox 90 02/07/24 11:58 O2 Del Method Room Air 02/07/24 11:58 O2 Flow Rate 2 02/06/24 05:00 Discharge Plan Discharge Patient Disposition: Home Condition: Stable Prescriptions: New atorvastatin 40 mg Tablet 40 mg PO BEDTIME Qty: 30 0RF ipratropium-albuterol 0.5 mg-3 mg(2.5 mg base)/3 mL Solution For Nebulization 3 ml inhalation QID.RESPIRATORY Qty: 360 0RF amlodipine 5 mg Tablet 5 mg PO DAILY Qty: 30 0RF doxycycline monohydrate 100 mg Tablet 100 mg PO BID Qty: 10 0RF budesonide 0.5 mg/2 mL Suspension For Nebulization 0.5 mg inhalation BID.RESPIRATORY Qty: 120 0RF metoprolol tartrate 25 mg Tablet 25 mg PO BID@0900,2100 Qty: 60 0RF loratadine 10 mg capsule 10 mg PO DAILY Qty: 30 0RF montelukast [Singulair] 10 mg tablet 10 mg PO DAILY Qty: 30 0RF albuterol sulfate [Ventolin HFA] 90 mcg/actuation HFA aerosol inhaler 1 inh inhalation Q6H PRN (Reason: shortness of breath or wheezing) Qty: 6.7 0RF aspirin 81 mg capsule 81 mg PO DAILY Qty: 30 0RF Discharge Orders: Discharge Order (Routine); Ordered 02/07/24 Ordered By: Dion Oswald Referrals: Ava Louie NP [Nurse Practitioner] - 02/27/24 1:00 pm Dagmar Taveras FNP [Nurse Practitioner] - 4-7 days (We have notified your physician's clinic of the need for a follow-up appointment to be scheduled. If you have not heard from them within the next 2 business days, please call them directly. ) Discharge Diet: Cardiac Discharge Activity: Increase activity as tolerated Patient Instructions: Asthma Exacerbation - Adult, Metoprolol (By mouth), Doxycycline (By mouth), Albuterol (By breathing) (ProAir, AccuNeb, Proventil, Proventil..., Aspirin (By mouth), Loratadine (By mouth), Amlodipine (By mouth), Atorvastatin (By mouth), Budesonide (By breathing), Ipratropium/Albuterol (By breathing) (Combivent, Combivent..., Montelukast (By mouth), Syncope (DC), Chronic Hypertension (DC), Opioid Safety Activity Restrictions/Additional Instructions: Take all medicine as prescribed Follow-up with cardiology 2 weeks, primary care provider 3 to 5 days Return for any concerns Consider sleep study as an outpatient. Discharge Attestations Time Spent in Discharge Care*: greater than 30 min Quality Metrics Clinical Quality Measures [ No reported AMI, CVA or VTE this stay] Coding Level of Care Code 72270 Total time (in minutes) for Discharge: 37 Diagnoses Syncope R55 Asthma exacerbation J45.901 Prediabetes R73.03 Essential hypertension I10
[2024-02-07 13:17] LABS: HCG, Serum Qual Negative (Negative)
--- NOTE | 2024-02-07 13:48 | PC.NURSE ---
discharge instructions given and explained.pt verb understanding of instructions.discharged via w/c to exit at this time.friend to drive pt home
== END 2024-02-07 13:49 | disposition home or self-care (01) ==
LOC: ER 05:26 → CSU 06:39
PROVIDERS: Internal Medicine; Nurse Practitioner Family; Admitting Provider Internal Medicine; Emergency Provider Emergency Medicine; Visit Provider Internal Medicine
DX: R55 Syncope and collapse (principal); J45.901 Unspecified asthma with (acute) exacerbation; R73.03 Prediabetes; I10 Essential (primary) hypertension; Z79.82 Long term (current) use of aspirin; F12.90 Cannabis use, unspecified, uncomplicated
CPT/HCPCS: 0241U; 36415; 36600; 71045; 78452; 80048; 80061; 80306; 81001; 82607; 82803; 82805; 83036; 83605; 83735; 83880; 84145; 84443; 84484; 84703; 85025; 85378; 87040; 87086; 93005; 93306; 94640; 94664; 96365; 96372; 96375; 99285; A9500; G0378; J0280; J1650; J2543; J2785; J3411; J3490; J7626

== ENCOUNTER 2024-03-16 11:07 | Inpatient (IN) | payer SELFPAY ==
[2024-03-16] VITALS (10 sets, daily range): BP systolic 133–163; BP diastolic 62–102; PULSE 62–120; RESP 17–20; TEMP 35.9–36.4; O2SAT 92–97
--- NOTE | 2024-03-16 11:12 | ECG_ITS ---
[facility] Test Date: 2024-03-16 Pat Name: Ameena Salas Department: Room: Gender: Female Safety Admin Assistant: : 1981-02-21 Requested By: Jose Salazar Order Number: [id number] Diana MD: Bryce Carroll M.D. Measurements Intervals [place] Rate: 121 P: 195 GA: 225 QRS: 32 QRSD: 97 T: 6 QT: 337 QTc: 478 Interpretive Statements SINUS TACHYCARDIA LOW QRS VOLTAGE IN PRECORDIAL LEADS [QRS DEFLECTION < 1.0 mV IN CHEST LEADS] No previous ECG available for comparison Electronically Signed On 03-17-2024 23:09:46 [employer] by Bryce Carroll M.D. [email or web address]
--- NOTE | 2024-03-16 11:12 | CT_ITS ---
WS: [id number] CT HEAD NONCONTRAST HISTORY: Altered mental status TECHNIQUE: Contiguous axial imaging performed through the brain. Bone and soft tissue windows. Sagitt al and coronal reformats reviewed. All CT scans at [facility] use at least one of these dose optimization techniques: automated exposure control; mA and/or kV adjustment per patient size (includ es targeted exams where dose is matched to clinical indication); or iterative reconstruction. DLP: 1108.20 mGy.cm COMPARISON: None available. No acute intracranial hemorrhage, midline shift or mass effect. Minimal cerebral atrophy. No infarct. No significant small vessel disease. Ventricles: Normal size with no hydrocephalus. No inferior displacement of the cerebellar tonsils. Paranasal sinuses: Frothy secretions in the LEFT maxillary sinus. Mastoid air cells: Well pneumatized. Calvarium and scalp: Skull is intact with no soft tissue edema or swelling. CT/CT head wo con* [id number] IMPRESSION: 1. No acute intracranial hemorrhage or edema. 2. Very minimal cerebral atrophy.
--- NOTE | 2024-03-16 11:12 | XR_ITS ---
WS: [id number] Portable AP upright chest, 03/16/2024 Clinical Data: dyspnea/cough Comparison: None. Findings: There is minimal bilateral basilar pulmonary opacities which could represent acute pneumoni a. No nodules, masses or effusions are seen. The heart is normal. The pulmonary vascularity is not in creased. No pneumonia or pneumothorax is seen. There are cystic changes overlying both torito which may be in the lungs. XR/XR chest 1V portable [id number] Impression: Possible minimal basilar pulmonary opacities which could represent acute pneumo rosalinda.
--- NOTE | 2024-03-16 11:13 | W.ED.AMS ---
HPI - Altered Mental Status General: Chief Complaint: Altered Mental Status Stated Complaint: AMS Time Seen by Provider: 03/16/24 11:09 History of Present Illness: 43-year-old female presents emergency room with altered mental status patient had a coughing spell became altered. She is moving all extremities has no focal neurologic deficits. There is no family members at the bedside when I first seen the patient. She has 0a low-grade temp of 99.6. Is satting normally on room air. She is awake but does not follow commands. She moves all extremities and has full visual concepcion with visual field threat. Review of Systems General: Reports: ROS unobtainable due to mental status Physical Exam Const: GENERAL APPEARANCE: cooperative ORIENTATION/CONSCIOUSNESS: Yes awake, Yes oriented to person, Yes oriented to place and Yes oriented to time HENMT: COMMON NORMALS: normocephalic, atraumatic and hearing grossly normal bilaterally HEAD & SCALP: normocephalic and atraumatic Resp: COMMON NORMALS: normal respiratory effort, No retractions, No use of accessory muscles and clear to auscultation bilaterally AUSCULTATION: clear to auscultation bilaterally Cardio: COMMON NORMALS: regular rate, regular rhythm and No murmurs present (Cardio) RATE: regular rate RHYTHM: regular rhythm GI: COMMON NORMALS: Soft to palpation and No hepatosplenomegaly present AUSCULTATION: Yes normoactive bowel sounds PALPATION: Yes Soft to palpation, No Tenderness to palpation present (GI), No Guarding due to palpation present (GI) and Yes No hepatosplenomegaly present Extremity: COMMON NORMALS: normal to inspection, capillary refill normal, no clubbing, cyanosis or edema, no calf tenderness and no pedal edema Neuro: SENSORIUM/ORIENTATION: Yes oriented to person, Yes oriented to place and Yes oriented to time Skin: COMMON NORMALS: no rashes or lesions noted GENERAL SKIN EXAM: no rashes or lesions noted Course Vital Signs: Vital signs: Vital Signs Temperature 96.6 F L 03/16/24 11:08 Pulse Rate 120 H 03/16/24 11:08 Blood Pressure 133/76 03/16/24 11:08 Pulse Oximetry 96 03/16/24 11:08 Oxygen Delivery Me thod Room Air 03/16/24 11:08 Discharge Plan Discharge Condition: Stable Patient Instructions: Altered Mental Status (ED) Coding Level of Care Code ED Fast Food Crew Member for Ruslan Fonseca
[2024-03-16 11:44] LABS: Basophils # 0.1 10^3/uL (0.0-0.1); Basophils % 0.5 %; Eosinophils # 0.7 10^3/uL (0.0-0.8); Eosinophils % 4.2 %; Hematocrit 40.6 % (36-47); Lymphocytes # 2.6 10^3/uL (0.8-4.8); Lymphocytes % 15.1 %; Mean Corpuscular HGB Conc 30.8 g/dL (30-55); Mean Corpuscular Hemoglobin 25.8 pg (27-33); Mean Corpuscular Volume 83.7 fl (85-98); Mean Platelet Volume 8.7 fL (7.4-10.4); Monocytes # 0.9 10^3/uL (0.2-0.9); Monocytes % 5.5 %; Neutrophils # 12.63 10^3/uL (1.8-7.7); Neutrophils % 74.1 %; Nucleated Red Blood Cells % 0 %; Platelet Count 426 10^3/cmm (157-399); Red Blood Count 4.85 10^6/uL (3.85-5.65); Red Cell Distribution Width 13.9 % (12.1-15.1); White Blood Count 17.04 10^3/uL (3.29-11.43)
[2024-03-16 12:01] LABS: Alanine Aminotransferase 16 U/L (0-33); Albumin Level 3.8 g/dL (3.5-5.2); Alkaline Phosphatase 91 U/L (35-105); Anion Gap 18.7 (5-19); Aspartate Amino Transferase 17 U/L (0-32); Blood Urea Nitrogen 10 mg/dL (6-20); Calcium 8.9 mg/dL (8.5-10.5); Carbon Dioxide 19 mmol/L (22-29); Chloride 101 mmol/L (98-107); Globulin 2.8 g/dL (1.3-4.6); Glomerular Filtration Rate 67.7 mL/min (90-130); Glucose 166 mg/dL (65-115); Osmolality Calculated 283 mOsm/kg (285-295); Potassium 3.7 mmol/L (3.5-5.1); Sodium 135 mmol/L (136-145); Total Bilirubin 0.6 mg/dL (0.15-1.2); Total Protein 6.6 g/dL (6.6-8.7)
[2024-03-16 12:02] LABS: Acetaminophen < 5.0 ug/mL (10-30); Alcohol Level < 10 mg/dL (0-10); Salicylate < 0.3 mg/dL (3-10)
[2024-03-16 12:08] LABS: HCG, Serum Qual Negative (Negative)
[2024-03-16] MEDS: ziprasidone 20 mg/mL SDV IM (12:37)
[2024-03-16] MEDS: LORazepam 2 mg/mL INJ 1 mL 1 MG IM (12:38)
[2024-03-16 13:31] LABS: Bilirubin Urine Negative (Negative); Blood Urine Negative (Negative); Glucose Urine UA Trace (Normal); Ketones Urine Negative (Negative); Leukocyte Esterase Urine Negative (Negative); Nitrate Urine Negative (Negative); Protein Urine 2+ (Negative); Specific Gravity, Urine 1.017 (1.005-1.030); Urine Appearance Clear (CLEAR); Urine Color Yellow (Yellow); Urobilinogen Urine 0.2 mg/dL (Negative)
[2024-03-16 13:38] LABS: Add Urine Microscopic? YES; Amphetamines Screen Urine Negative (Negative); Bacteria Urine None Seen /hpf; Barbiturates Screen Urine Negative (Negative); Benzodiazepines Screen Urine Negative (Negative); Cocaine Screen Urine Negative (Negative); Hyaline Casts Urine 2.46 /lpf; Opiate Screen Urine Negative (Negative); PCP Screen Urine Negative (Negative); RBC Urine 0-2 /hpf (0-2); Squamous Epithelial Cell Urine 0-5 /hpf (0-5); THC Screen Urine Positive (Negative); WBC Urine 0-5 /hpf (0-5)
--- NOTE | 2024-03-16 13:43 | CT_ITS ---
WS: [id number] CTA CHEST WITH CT ABDOMEN AND PELVIS. HISTORY: Altered mental status, abnormal labs. TECHNIQUE: CT angiogram is performed through the chest. Additional imaging is performed through the a bdomen and pelvis with IV contrast. Sagittal and coronal reformats have been submitted. MIP imaging also reviewed. All CT scans at [facility] use at least one of these dose optimization techniqu es: automated exposure control; mA and/or kV adjustment per patient size (includes targeted exams whe re dose is matched to clinical indication); or iterative reconstruction. Contrast: Omnipaque 350; 95 cc IV. DLP: 1706.75 mGy.cm COMPARISON: None. Chest CTA: Adequate opacification of the central pulmonary arteries. Streak artifact from the patient 's arms through the chest. Distal to the lobar branches of opacification becomes limited. No large ce ntral emboli. Normal size pulmonary artery. No RIGHT heart strain. No pericardial or pleural effusion s. No pulmonary consolidation or mass. No pneumonia. No mediastinal or hilar adenopathy. Small hiatal hernia. Abdomen CT: Liver and spleen are normal size. Normal portal vein. Normal gallbladder. Normal pancreas . Ovoid mass LEFT adrenal gland 1.3 cm is most likely a benign adenoma with no history of malignancy. Normal enhancement and excretion from the kidneys. Low-attenuation RIGHT renal mass 2.5 cm. No enhan cement. Normal LEFT kidney. No GI tract obstruction. Appendix is normal size and contains an appendicolith but no inflammation. N o colitis or enterocolitis. There are a few sigmoid diverticula with no acute diverticulitis. Pelvic CT: Urinary bladder is well distended. Anteverted uterus is normal size. No fluid or adenopath y in the pelvis. CT/CT angio chest w abd pel w con IMPRESSION: 1. No central pulmonary embolism. Beyond the lobar branches opacification of t he pulmonary arteries is limited. 2. No pneumonia. 3. No adenopathy in the chest, abdomen or pelvis. 4. No ascites. 5. No appendicitis. Appendicolith is present. 6. No colitis. 7. Small hiatal hernia. 8. LEFT adrenal gland mass 1.3 cm is most likely an adenoma.
--- NOTE | 2024-03-16 13:50 | ECG_ITS ---
[facility] Test Date: 2024-03-16 Pat Name: Ameena Salas Department: Room: Gender: Female Acting Manager: : 1981-02-21 Requested By: Jose Salazar Order Number: [id number] Diana MD: Bryce Carroll M.D. Measurements Intervals [place] Rate: 99 P: 69 MD: 136 QRS: 62 QRSD: 91 T: 70 QT: 370 QTc: 476 Interpretive Statements SINUS RHYTHM LOW QRS VOLTAGE IN PRECORDIAL LEADS [QRS DEFLECTION < 1.0 mV IN CHEST LEADS] Compared to ECG 03/16/2024 11:17:54 First degree AV block no longer present Electronically Signed On 03-17-2024 23:08:12 EDGER MACHINE SETTER by Bryce Carroll M.D. [id number]
[2024-03-16 14:19] LABS: Troponin(5th) Baseline 18 ng/L (0-10)
[2024-03-16 14:21] LABS: Lactic Sepsis W/Reflex 2.4 mmol/L (0.5-2.2)
[2024-03-16 14:22] LABS: Lipase 28 U/L (13-60); Magnesium 2.1 mg/dL (1.7-2.3)
[2024-03-16 14:23] LABS: Reflex Lactate Order REFLEX LACTIC ORDERD
[2024-03-16] MEDS: piperacillin-tazobactam 3.375 GM in sodium chloride 0.9% (plus) 50 ML IV ×2 (14:23→20:19)
[2024-03-16] MEDS: VANCOMYCIN ADD-Vantage 1,000 MG in 0.9% NaCl ADD-Vantage 250 ML 250 MG IV (14:24)
[2024-03-16 14:45] LABS: Troponin 5 2HR 24.87 ng/L (0-10); Troponin 5 2HR Delta 6.87 ABS# (0-10)
[2024-03-16 14:46] LABS: Lactic Acid level (Lactate) 1.7 mmol/L (0.5-2.2)
[2024-03-16] MEDS: iohexol 350 mg/mL 500 mL Btl (per mL) IV (15:16)
--- NOTE | 2024-03-16 16:04 | ECG_ITS ---
[facility] 2024[facility]16 Pat Name: Krystian Reyes Department: Room: Gender: Female Director Of Sales And Marketing: : 1980 Requested By: Jose Salazar Order Number: [id number] Diana MD: Bryce Carroll M.D. Measurements Intervals [place] Rate: 101 P: 60 [place]: 142 QRS: 21 QRSD: 94 T: 53 QT: 355 QTc: 460 Interpretive Statements SINUS TACHYCARDIA LOW QRS VOLTAGE IN PRECORDIAL LEADS [QRS DEFLECTION < 1.0 mV IN CHEST LEADS] Compared to ECG 03/16/2024 13:50:28 Sinus rhythm no longer present Electronically Signed On 03-17-2024 23:26:47 ELECTRONIC ENGINEERING DRAFTSPERSON by Bryce Carroll M.D. [id number]
[2024-03-16 16:10] LABS: Creatine Phosphokinase 340 U/L (26-192)
--- NOTE | 2024-03-16 16:38 | PC.PHAR ---
Addendum entered by Debora Perdue 03/16/24 16:41: mEDICATIONS WERE ORDERED BY EMMANUEL SCHMIDT FILLED AT [facility]. Original Note: PATIENT DID NOT ANSWER QUESTIONS ABOUT MEDICATIONS, I JUST UPLOADED LAST MEDICATIONS FILLED AT THE PHARMACY .
[2024-03-16 16:44] LABS: Covid PCR NEGATIVE (Negative); Influenza A NEGATIVE (Negative); Influenza B NEGATIVE (Negative); Respiratory Syncytial Virus Ce NEGATIVE (Negative)
--- NOTE | 2024-03-16 17:54 | P.HP_ITS ---
Providers/Chief Complaint 2 Chief Complaint: AMS History of Present Illness Krystian Reyes is a 43 year old female with past medical history of asthma, hyperlipidemia, hypertension was brought to the ER today because of altered mental status. As per the conversation with the ER physician apparently patient was at home had a coughing spell after which she became altered. In the ER patient was altered but was moving all her extremities and did not have any focal deficit. Patient was found to have a low-grade temperature of 99.6 Fahrenheit. She was not able to follow any directions but was moving all her limbs. Extensive workup was done for altered mental status including CT of the head, CT with contrast for chest abdomen pelvis, along with blood work. 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 Blood work done in the ER showed a white count of 17.4, normal hemoglobin, sodium 135 bicarb of 19 normal creatinine and CPK of 18, baseline troponin of 18 with a delta of 6 in 2 hours, negative hCG, UA negative for signs of UTI, toxic screen negative other than positive for marijuana, negative COVID-19 and influenza PCR. Patient did receive 3 mg of IV Ativan overall along with 20 of zip[address]idone for the CT scans. On examination patient was awake and alert, groggy, states she lives with her brother Alexander. Not sure why she is in the ER. Not able to really tell the circumstances for which she is in the ER. Not able to give any further history. Denies any complaints currently. Current blood pressure of 160 systolic, heart rate of 102 bpm with saturation 95% on room air. On review of chart from before of note patient has a duplicate chart in the system. It seems she was admitted on 02/06/2024 and discharged on 02/06 with similar complaints. She was monitored in the hospital for 24 hours, did not have any further events. 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 Patient was sent home on medical management with aspirin, statin. Patient was found to have an A1c of 5.8, TSH of 4.7, abnormal lipid panel Review of Systems 2 General: Reports: ROS unobtainable due to mental status Medications/Allergies Home Medications Medication Instructions Recorded Confirmed Last Taken Type albuterol sulfate 90 mcg/actuation 1 puff inhalation Q6H PRN 03/16/24 03/16/24 Unknown History aerosol inhaler Shortness Of Breath Or Wheezing amlodipine 5 mg tablet 5 mg PO DAILY 03/16/24 03/16/24 Unknown History aspirin 81 mg tablet,delayed 81 mg PO DAILY 03/16/24 03/16/24 Unknown History release atorvastatin 40 mg tablet 40 mg PO BEDTIME 03/16/24 03/16/24 Unknown History ipratropium 0.5 mg-albuterol 3 mg 3 ml inhalation QID 03/16/24 03/16/24 Unknown History (2.5 mg base)/3 mL nebulization soln loratadine 10 mg tablet 10 mg PO DAILY 03/16/24 03/16/24 Unknown History metoprolol tartrate 25 mg tablet 25 mg PO BID 03/16/24 03/16/24 Unknown History montelukast 10 mg tablet 10 mg PO DAILY 03/16/24 03/16/24 Unknown History Vitals/I&O/Wt Last Vital Signs Temp 96.6 F L 03/16/24 11:08 Pulse 105 H 03/16/24 14:37 BP 163/102 03/16/24 14:37 Pulse Ox 97 03/16/24 14:37 O2 Del Method Room Air 03/16/24 11:08 Physical Exam 2 Narrative: General: No acute distress, AO x 1 to 2, dehydrated, slow to respond HEENT: PERRLA, pupils bilaterally equal and reactive Chest: Bilateral bronchial breath sounds all over lung concepcion with occasional rhonchi CVS: S1-S2 regular, no murmurs, no tachycardia, no gallops, no rubs Abdomen: Soft, nontender, no organomegaly, bowel sounds present Neuro: No focal deficits, no facial deformity, moving all limbs Data 03/16/24 11:26 03/16/24 11:26 Micro: Microbiology 03/16/24 14:19 Blood Culture - Preliminary Blood SPECIMEN COLLECTED 03/16/24 14:06 Blood Culture - Preliminary Blood SPECIMEN COLLECTED A&P Assessment and plan (1) Altered mental status: Unknown cause. Second admission in 2 months with a similar complaint. Had extensive workup prior as well. Extensive workup on this admission essentially negative. Patient currently denies any neck pain, nuchal rigidity, photophobia. Seems to be improving and coming back to her baseline mentation. Low concerns for meningitis for now. Event preceded by a coughing spell. It seems previous spell was also associated with coughing bout. Cannot rule out in setting of high vagal tone. Urine drug screen negative than marijuana. Fall precaution, seizure precaution, aspiration precaution. Keep n.p.o. for now. Start on D5 NS at 75 cc/h. Protonix as needed. (2) Asthma: Check respiratory viral panel. Pulmicort twice daily, ipratropium, Xopenex every 6 hours (3) Hypertension: Goal blood pressure less than 140/90 mmHg. Continue with home dose of metoprolol, amlodipine. (4) Hyperlipidemia: Plan History of CAD. Denies any active chest pain. Troponins are currently negative. Lexiscan stress test within last 1 month slightly positive. Will continue to monitor. Appreciate recent echocardiogram. N.p.o. Full code Protonix OPD prophylaxis Heparin 5000 Q12 hourly for DVT prophylaxis. Will try to gather further history from patient's family members once available. No number present in the chart. Attestations 2 Medical Necessity Statement*: Admission for more than 2 midnights for management of altered mental status in a patient with history of asthma, hypertension, hyperlipidemia, second episode in 2 months Diagnoses Altered mental status R41.82 Asthma J45.909 Hypertension I10 Hyperlipidemia E78.5
[2024-03-16] MEDS: levalbuterol 0.63 mg/3 mL Neb INHALATION ×2 (18:10→23:44)
[2024-03-16 18:23] LABS: Troponin 5 6HR 15.36 ng/L (0-10)
[2024-03-16 18:24] LABS: Troponin 5 6HR Delta -2.64 ng/L (0-12)
--- NOTE | 2024-03-16 18:39 | PHA.VACGOAL ---
Vancomycin Goal - Therapy Day of therpy:: Day []of [] . Actual body weight (kg): 210 lb - Data Labs: WBC 17.04 10^3/uL (3.29-11.43) H 03/16/24 11:26 RBC 4.85 10^6/uL (3.85-5.65) 03/16/24 11:26 Hgb 12.50 g/dL (11.27-16.99) 03/16/24 11:26 Hct 40.6 % (36-47) 03/16/24 11:26 MCV 83.7 fl (85-98) L 03/16/24 11:26 MCH 25.8 pg (27-33) L 03/16/24 11:26 MCHC 30.8 g/dL (30-55) 03/16/24 11:26 RDW 13.9 % (12.1-15.1) 03/16/24 11:26 Sodium 135 mmol/L (136-145) L 03/16/24 11:26 Potassium 3.7 mmol/L (3.5-5.1) 03/16/24 11:26 Chloride 101 mmol/L (98-107) 03/16/24 11:26 Carbon Dioxide 19 mmol/L (22-29) L 03/16/24 11:26 Anion Gap 18.7 (5-19) 03/16/24 11:26 BUN 10 mg/dL (6-20) 03/16/24 11:26 Creatinine 0.9 mg/dL (0.5-0.9) 03/16/24 11:26 GFR Calculation 67.7 mL/min (90-130) L 03/16/24 11:26 Treatment plan:: new consult Regimen:: NO CLEAR INDICATION AT THIS TIME EMPERIC TX 1500 MG Q12H UNTIL FURTHER ASSESMENT
[2024-03-16] MEDS: docusate sodium 100 mg Capsule PO (18:49)
[2024-03-16] MEDS: metoprolol tartrate 25 mg Tablet PO (18:49)
[2024-03-16] MEDS: dextrose 5%-sod chloride 0.9% 1,000 ML 100 ML IV (18:50)
[2024-03-16] MEDS: pantoprazole 40 mg SDV IVP (18:53)
[2024-03-16] MEDS: heparin 5,000 unit/mL INJ 1 mL 5000 UNIT SUBCUT (18:53)
[2024-03-16 19:15] LABS: Procalcitonin 0.06 ng/mL (0-0.5)
[2024-03-16] MEDS: atorvastatin 40 mg Tablet PO (20:26)
[2024-03-16 20:50] LABS: MRSA PCR OZH (swab) NOT DETECTED (Not Detecte)
[2024-03-16 21:29] LABS: Adenovirus Not Detected (NOT DETECT); Chlamydia Pneumoniae Not Detected (NOT DETECT); Coronavirus 229E,HKU1,NL63,OC4 Not Detected (NOT DETECT); Human Metapneumovirus Not Detected (NOT DETECT); Human Rhinovirus/Enterovirus Not Detected (NOT DETECT); Influenza A Not Detected (NOT DETECT); Influenza A H1 Not Detected (NOT DETECT); Influenza A H1-2009 Not Detected (NOT DETECT); Influenza A H3 Not Detected (NOT DETECT); Influenza B Not Detected (NOT DETECT); Mycoplasma Pneumoniae Not Detected (NOT DETECT); Parainfluenza Virus Type 1 Not Detected (NOT DETECT); Parainfluenza Virus Type 2 Not Detected (NOT DETECT); Parainfluenza Virus Type 3 Not Detected (NOT DETECT); Parainfluenza Virus Type 4 Not Detected (NOT DETECT); Respiratory Syncytial Virus A Not Detected (NOT DETECT); Respiratory Syncytial Virus B Not Detected (NOT DETECT); SARS-COV-2 Not Detected (NOT DETECT)
[2024-03-16] MEDS: vancomycin 1,500 MG/300 ML PIGGYBACK 200 MG IV (22:40)
[2024-03-16] MEDS: ipratropium 0.5 mg/2.5 mL Neb INHALATION (23:44)
[2024-03-17] VITALS (9 sets, daily range): BP systolic 126–151; BP diastolic 79–99; PULSE 72–97; RESP 16–22; TEMP 36.5–36.8; O2SAT 91–98
[2024-03-17] MEDS: piperacillin-tazobactam 3.375 GM in sodium chloride 0.9% (plus) 50 ML IV ×2 (03:36→12:58)
[2024-03-17] MEDS: dextrose 5%-sod chloride 0.9% 1,000 ML 100 ML IV ×2 (03:40→13:00)
[2024-03-17] MEDS: heparin 5,000 unit/mL INJ 1 mL 5000 UNIT SUBCUT (05:21)
[2024-03-17] MEDS: budesonide 0.5 mg/2 mL Neb INHALATION (07:41)
[2024-03-17] MEDS: ipratropium 0.5 mg/2.5 mL Neb INHALATION ×2 (07:41→13:00)
[2024-03-17] MEDS: levalbuterol 0.63 mg/3 mL Neb INHALATION ×2 (07:42→13:00)
--- NOTE | 2024-03-17 10:18 | PC.CHAP ---
Pastoral Care Encounter/Spiritual Assessment Type of Contact [] Declined product safety coordinator visit [] Patient/Family/Request visit [] Outpatient visit [] Follow-up visit [] Physician referral [] Code/Alert [] Routine visit [] Staff referral [] Actively dying [] Patient sleeping [] Family support [] [X] Out of room [] Palliative care [] [] Receiving care in room [] Pre-surgical visit [] Trauma [] Long length of stay [] ICU visit [] Other: Relational/Emotional Strength [] Patient feels connected with others/family/visitors/staff [] Distress [] Loneliness/isolation [] Abandonment Spirituality of Patient [] Person of Leeanne [] Attends Jew of their Leeanne [] Believes in Prayer [] Reads Bible or Druze materials [] There are Spiritual issues to be addressed Finishing Manager Interventions [] Prayer [] Active listening [] Non-anxious presence [] Spiritual/emotional support [] Crisis/trauma care [] Spiritual counseling [] Bereavement support [] Provided bereavement packet [] Provided Bible/devotional materials [] Provided toy/stuffed animal, coloring book to patient or family member [] Provided Communion [] Anointing/[facility] [] Salvation [] Completed spiritual assessment [] Other: Impact on Illness or Injury [] Angry [] Fearful [] Anxious [] Often cries [] Exhaustion [] Unable to work [] Unable to attend church [] Unable to walk/stand [] Unable to read [] Unable to drive [] Unable to eat/drink [] Unable to sleep [] Unable to be with family [] Patient intubated [] Other: Summary Time spent with patient
[2024-03-17] MEDS: aspirin 81 mg EC Tablet PO (10:44)
[2024-03-17] MEDS: amlodipine 5 mg Tablet PO (10:44)
[2024-03-17] MEDS: vancomycin 1,500 MG/300 ML PIGGYBACK 200 MG IV (10:45)
[2024-03-17] MEDS: metoprolol tartrate 25 mg Tablet PO (10:45)
[2024-03-17] MEDS: docusate sodium 100 mg Capsule PO (10:45)
--- NOTE | 2024-03-17 13:52 | PM.DCS ---
Discharge Providers Date of Admission: 03/16/24 21:26 Date of Discharge: March 17, 2024 Attending Provider at Admission: Guillermo Kan MD Attending Provider at Discharge: Guillermo Kan MD Diagnoses at Discharge Discharge Diagnosis (1) Altered mental status: Status: Acute (2) Asthma: Status: Acute (3) Hypertension: Status: Acute (4) Hyperlipidemia: Status: Acute Reason for Visit Reason for Visit: AMS Hospital Course Hospital Course Krystian Reyes is a 43 year old female with past medical history of asthma, hyperlipidemia, hypertension was brought to the ER today because of altered mental status. As per the conversation with the ER physician apparently patient was at home had a coughing spell after which she became altered. In the ER patient was altered but was moving all her extremities and did not have any focal deficit. Patient was found to have a low-grade temperature of 99.6 Fahrenheit. She was not able to follow any directions but was moving all her limbs. Extensive workup was done for altered mental status including CT of the head, CT with contrast for chest abdomen pelvis, along with blood work. 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 Blood work done in the ER showed a white count of 17.4, normal hemoglobin, sodium 135 bicarb of 19 normal creatinine and CPK of 18, baseline troponin of 18 with a delta of 6 in 2 hours, negative hCG, UA negative for signs of UTI, toxic screen negative other than positive for marijuana, negative COVID-19 and influenza PCR. Patient did receive 3 mg of IV Ativan overall along with [address] of [address] the CT scans. On examination patient was awake and alert, groggy, states she lives with her brother Alexander. Not sure why she is in the ER. Not able to really tell the circumstances for which she is in the ER. Not able to give any further history. Denies any complaints currently. Current blood pressure of 160 systolic, heart rate of 102 bpm with saturation 95% on room air. On review of chart from before of note patient has a duplicate chart in the system. It seems she was admitted on 02/06/2024 and discharged on 02/06 with similar complaints. She was monitored in the hospital for 24 hours, did not have any further events. 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 Patient was sent home on medical management with aspirin, statin. Patient was found to have an A1c of 5.8, TSH of 4.7, abnormal lipid panel Patient was admitted to the hospital further evaluation management. She was awake and alert back to her baseline mentation from next morning. On the day of discharge she is AO x 3, alert and oriented to being in the hospital but was not aware while she is in the hospital. She states the last thing she remembers from the day of admission is her having difficulty in breathing and coughing more than usual. Patient states she has been having difficulty in breathing because of asthma on and off for last 2 months. She has been using her inhalers and nebulization treatment more frequently. Denies any primary or secondary exposure to smoking. Does give history of snoring with episodes of difficulty in breathing on laying down. Gives history of waking up multiple times at night with difficulty in breathing and to urinate. She has been discharged in hemodynamically stable condition on oral Augmentin and Levaquin for next 4 days. She will continue using her nebulization with DuoNeb every 8 hours. Breo Ellipta has been prescribed to her. While she is not able to get her Breo she will be using Pulmicort nebulizer as before. Patient would benefit from an early sleep study as an outpatient given concerns for sleep apnea. She has been discharged on oral Lasix 20 mg daily. Safe discharge planning and counseling for possible congestive diastolic heart failure discussed in detail with the patient. Home O2 evaluation has been requested prior to discharge. Physical Exam Narrative: General: No acute distress, AOx3, sitting comfortably in bed HEENT: PERRLA, pupils bilaterally equal and reactive Chest: Bilateral bronchial breath sounds all over lung concepcion with occasional rhonchi CVS: S1-S2 regular, no murmurs, no tachycardia, no gallops, no rubs Abdomen: Soft, nontender, no organomegaly, bowel sounds present Neuro: No focal deficits, no facial deformity, moving all limbs Discharge Data Studies Completed and Pending Completed Studies During Hospitalization Category Date Time Status CT head wo con* [id number] Stat Cat Scan 03/16/24 11:[address] abdomen pelvis [CT angio chest w abd pel w Cat Scan 03/16/24 13:43 Completed con] Stat XR chest 1V portable [id number] Stat Exams 03/16/24 11:12 Completed Pending at discharge Category Date Time Status Blood Culture Stat Lab 03/16/24 14:19 Results Complete Blood Count w/Auto Stat Lab 03/17/24 13:02 Ordered Comprehensive Metabolic Panel Routine Lab 03/17/24 13:02 Ordered Radiology Impressions Chest X-Ray 03/16/24 11:12 Impression: Possible minimal basilar pulmonary opacities which could represent acute pneumonia. Head CT 03/16/24 11:12 IMPRESSION: 1. No acute intracranial hemorrhage or edema. 2. Very minimal cerebral atrophy. Chest/Abdomen/Pelvis CT 03/16/24 13:43 IMPRESSION: 1. No central pulmonary embolism. Beyond the lobar branches opacification of the pulmonary arteries is limited. 2. No pneumonia. 3. No adenopathy in the chest, abdomen or pelvis. 4. No ascites. 5. No appendicitis. Appendicolith is present. 6. No colitis. 7. Small hiatal hernia. 8. LEFT adrenal gland mass 1.3 cm is most likely an adenoma. Laboratory Results WBC 17.04 10^3/uL (3.29-11.43) H 03/16/24 11:26 RBC 4.85 10^6/uL (3.85-5.65) 03/16/24 11:26 Hgb 12.50 g/dL (11.27-16.99) 03/16/24 11:26 Hct 40.6 % (36-47) 03/16/24 11:26 MCV 83.7 fl (85-98) L 03/16/24 11:26 MCH 25.8 pg (27-33) L 03/16/24 11:26 MCHC 30.8 g/dL (30-55) 03/16/24 11:26 RDW 13.9 % (12.1-15.1) 03/16/24 11:26 Plt Count 426 10^3/cmm (157-399) H 03/16/24 11:26 MPV 8.7 fL (7.4-10.4) 03/16/24 11:26 Neut % (Auto) 74.1 % 03/16/24 11:26 Lymph % (Auto) 15.1 % 03/16/24 11:26 Fallon % (Auto) 5.5 % 03/16/24 11:26 Eos % (Auto) 4.2 % 03/16/24 11:26 Baso % (Auto) 0.5 % 03/16/24 11:26 Neut # (Auto) 12.63 10^3/uL (1.8-7.7) H 03/16/24 11:26 Lymph # (Auto) 2.6 10^3/uL (0.8-4.8) 03/16/24 11:26 Fallon # (Auto) 0.9 10^3/uL (0.2-0.9) 03/16/24 11:26 Eos # (Auto) 0.7 10^3/uL (0.0-0.8) 03/16/24 11:26 Baso # (Auto) 0.1 10^3/uL (0.0-0.1) 03/16/24 11:26 Nucleated RBC % (auto) 0 % 03/16/24 11:26 Nucleated RBCs # 0.0 /100WBC 03/16/24 11:26 Sodium 135 mmol/L (136-145) L 03/16/24 11:26 Potassium 3.7 mmol/L (3.5-5.1) 03/16/24 11:26 Chloride 101 mmol/L (98-107) 03/16/24 11:26 Carbon Dioxide 19 mmol/L (22-29) L 03/16/24 11:26 Anion Gap 18.7 (5-19) 03/16/24 11:26 BUN 10 mg/dL (6-20) 03/16/24 11:26 Creatinine 0.9 mg/dL (0.5-0.9) 03/16/24 11:26 GFR Calculation 67.7 mL/min (90-130) L 03/16/24 11:26 Glucose 166 mg/dL (65-115) H 03/16/24 11:26 Calculated Osmolality 283 mOsm/kg (285-295) L 03/16/24 11:26 Lactic Acid 2.4 mmol/L (0.5-2.2) H 03/16/24 11:26 Lactic Acid (Sepsis) 1.7 mmol/L (0.5-2.2) 03/16/24 14:06 Calcium 8.9 mg/dL (8.5-10.5) 03/16/24 11:26 Magnesium 2.1 mg/dL (1.7-2.3) 03/16/24 11:26 Total Bilirubin 0.6 mg/dL (0.15-1.2) 03/16/24 11:26 AST 17 U/L (0-32) 03/16/24 11:26 ALT 16 U/L (0-33) 03/16/24 11:26 Alkaline Phosphatase 91 U/L (35-105) 03/16/24 11:26 Creatine Kinase 340 U/L (26-192) H* 03/16/24 14:06 Troponin T Baseline 18 ng/L (0-10) H 03/16/24 11:26 Troponin T 120 Minute 24.87 ng/L (0-10) H 03/16/24 14:06 Delta Troponin T 6.87 ABS# (0-10) 03/16/24 14:06 Troponin T Hi Sens 6Hr 15.36 ng/L (0-10) H 03/16/24 17:43 Troponin T Hi Sens 6Hr Delta -2.64 ng/L (0-12) L 03/16/24 17:43 Total Protein 6.6 g/dL (6.6-8.7) 03/16/24 11:26 Albumin 3.8 g/dL (3.5-5.2) 03/16/24 11:26 Globulin 2.8 g/dL (1.3-4.6) 03/16/24 11:26 Lipase 28 U/L (13-60) 03/16/24 11:26 Procalcitonin 0.06 ng/mL (0-0.5) 03/16/24 17:43 HCG, Qual Negative (Negative) 03/16/24 11:26 Urine Color Yellow (Yellow) 03/16/24 13:15 Urine Appearance Clear (CLEAR) 03/16/24 13:15 Urine pH 6.0 (5-7) 03/16/24 13:15 Ur Specific Vincent 1.017 (1.005-1.030) 03/16/24 13:15 Urine Protein 2+ (Negative) A 03/16/24 13:15 Urine Glucose (UA) Trace (Normal) H 03/16/24 13:15 Urine Ketones Negative (Negative) 03/16/24 13:15 Urine Blood Negative (Negative) 03/16/24 13:15 Urine Nitrate Negative (Negative) 03/16/24 13:15 Urine Bilirubin Negative (Negative) 03/16/24 13:15 Urine Urobilinogen 0.2 mg/dL (Negative) 03/16/24 13:15 Ur Leukocyte Esterase Negative (Negative) 03/16/24 13:15 Urine RBC 0-2 /hpf (0-2) 03/16/24 13:15 Urine WBC 0-5 /hpf (0-5) 03/16/24 13:15 Ur Squamous Epith Cells 0-5 /hpf (0-5) 03/16/24 13:15 Amorphous Sediment Not Reportable 03/16/24 13:15 Urine Bacteria None seen /hpf (NONE) 03/16/24 13:15 Hyaline Casts 2.46 /lpf 03/16/24 13:15 Nasal MRSA (PCR) Not detected (Not Detecte) 03/16/24 19:25 Salicylates < 0.3 mg/dL (3-10) L 03/16/24 11:26 Urine Opiates Screen Negative ng/mL (Negative) 03/16/24 13:15 Acetaminophen < 5.0 ug/mL (10-30) L 03/16/24 11:26 Ur Barbiturates Screen Negative ng/mL (Negative) 03/16/24 13:15 Ur Phencyclidine Scrn Negative ng/mL (Negative) 03/16/24 13:15 Ur Amphetamines Screen Negative ng/mL (Negative) 03/16/24 13:15 U Benzodiazepines Scrn Negative ng/mL (Negative) 03/16/24 13:15 Urine Cocaine Screen Negative ng/mL (Negative) 03/16/24 13:15 U Marijuana (THC) Screen Positive ng/mL (Negative) H 03/16/24 13:15 Ethyl Alcohol < 10 mg/dL (0-10) 03/16/24 11:26 Adenovirus (PCR) Not detected (NOT DETECT) 03/16/24 19:25 C. pneumoniae DNA (PCR) Not detected (NOT DETECT) 03/16/24 19:25 Coronavirus (PCR) Negative (Negative) 03/16/24 15:13 Coronavirus 229E (PCR) Not detected (NOT DETECT) 03/16/24 19:25 Human Metapneumovir PCR Not detected (NOT DETECT) 03/16/24 19: Influenza A (H1) PCR Not detected (NOT DETECT) 03/16/24 19: Influenza A (PCR) Negative (Negative) 03/16/24 15:13 Influ A (H1/09) PCR Not detected (NOT DETECT) 03/16/24: Influenza A (H3) PCR Not detected (NOT DETECT) 03/16/24: Influenza Type A (PCR) Not detected (NOT DETECT) 03/16/24 19: Influenza Type B (PCR) Not detected (NOT DETECT) 03/16/24 19: M. pneumoniae (PCR) Not detected (NOT DETECT) 03/16/24: Parainfluenza 1 (PCR) Not detected (NOT DETECT) 03/16/24: Parainfluenza 2 (PCR) Not detected (NOT DETECT) 03/16/24: Parainfluenza 3 (PCR) Not detected (NOT DETECT) 03/16/24 19: Parainfluenza 4 (PCR) Not detected (NOT DETECT) 03/16/24 19: RSV (PCR) Negative (Negative) 03/16/24 15:13 RSV Type A (PCR) Not detected (NOT DETECT) 03/16/24: RSV Type B (PCR) Not detected (NOT DETECT) 03/16/24: Entero/Rhino (PCR) Not detected (NOT DETECT) 03/16/24: SARS-CoV-2 (PCR) Not detected (NOT DETECT) 03/16/24: Vitals Last Vital Signs Temp 98.2 F 03/17/24 11:19 Pulse 72 03/17/24 13:00 Resp 20 H 03/17/24 13:00 BP 151/99 03/17/24 11:19 Pulse Ox 96 03/17/24 13:00 O2 Del Method Nasal Cannula 03/17/24 13:00 O2 Flow Rate 2 03/17/24 13:00 Discharge Plan Discharge Patient Disposition: Home Condition: Stable Prescriptions: New amoxicillin-pot clavulanate 875-125 mg tablet 1 tab PO BID 5 Days Qty: 10 0RF prednisone 10 mg tablet See Taper PO DIRECTED Qty: 42 0RF Taper: predniSONE 60-10 60 mg Daily for 2 Days and 0 Hour 50 mg Daily for 2 Days and 0 Hour 40 mg Daily for 2 Days and 0 Hour 30 mg Daily for 2 Days and 0 Hour 20 mg Daily for 2 Days and 0 Hour 10 mg Daily for 2 Days and 0 Hour Rx Instructions: see taper instructions furosemide [Lasix] 20 mg tablet 20 mg PO QAM Qty: 30 0RF levofloxacin 750 mg tablet 750 mg PO Q24H 5 Days Qty: 5 0RF Breo Ellipta 50-25 mcg/dose blister with device 1 inh inhalation DAILY Qty: 60 0RF Continued atorvastatin 40 mg tablet 40 mg PO BEDTIME amlodipine 5 mg tablet 5 mg PO DAILY aspirin 81 mg tablet,delayed release (DR/EC) 81 mg PO DAILY montelukast 10 mg tablet 10 mg PO DAILY metoprolol tartrate 25 mg tablet 25 mg PO BID loratadine 10 mg capsule 10 mg PO DAILY Qty: 30 0RF albuterol sulfate [Ventolin HFA] 90 mcg/actuation HFA aerosol inhaler 1 inh inhalation Q6H PRN (Reason: shortness of breath or wheezing) Qty: 6.7 0RF budesonide 0.5 mg/2 mL Suspension For Nebulization 0.5 mg inhalation BID.RESPIRATORY Qty: 120 0RF Changed ipratropium-albuterol 0.5 mg-3 mg(2.5 mg base)/3 mL solution for nebulization 3 ml INHALATION Q8H Qty: 180 0RF Discontinued albuterol sulfate 90 mcg/actuation HFA aerosol inhaler 1 puff INHALATION Q6H PRN (Reason: Shortness Of Breath Or Wheezing) loratadine 10 mg tablet 10 mg PO DAILY atorvastatin 40 mg Tablet 40 mg PO BEDTIME Qty: 30 0RF ipratropium-albuterol 0.5 mg-3 mg(2.5 mg base)/3 mL Solution For Nebulization 3 ml inhalation QID.RESPIRATORY Qty: 360 0RF amlodipine 5 mg Tablet 5 mg PO DAILY Qty: 30 0RF doxycycline monohydrate 100 mg Tablet 100 mg PO BID Qty: 10 0RF metoprolol tartrate 25 mg Tablet 25 mg PO BID@0900,2100 Qty: 60 0RF montelukast [Singulair] 10 mg tablet 10 mg PO DAILY Qty: 30 0RF aspirin 81 mg capsule 81 mg PO DAILY Qty: 30 0RF Discharge Orders: Discharge Order (Routine); Ordered 03/17/24 Ordered By: Guillermo Kan Other Ambulatory Orders: Sleep Study W Sleep Stage (Routine) Timeframe: 1 Week Facility: [facility] - Location: [facility] Ordered By: Guillermo Kan Discharge Diet: Cardiac Discharge Activity: Resume usual activity and Increase activity as tolerated Patient Instructions: Altered Mental Status (ED), Opioid Safety Activity Restrictions/Additional Instructions: Restrict fluid intake to less than 1500 cc, salt intake to less than 2 g daily. Advised to check his weight daily at home. Is advised that weight today would be the dry weight and if body weight increases by around 5 pounds, patient is to take an extra dose of Lasix daily till body weight comes down to weight today. If not able to come down to dry body weight in 1 week, then is to call cardiology office for further recommendations. Patient was counseled in detail to take medications regularly as prescribed. Please follow-up with a primary care provider followed an outpatient sleep study at the earliest. Use nebulization treatment with DuoNeb every 8 hour. Use Breo Ellipta which is the nebulizer once daily. If you are not able to get Breo continue using your Pulmicort as before. Discharge Attestations Time Spent in Discharge Care*: greater than 30 min Specific Discharge Activities: educating patient, discussing with pcp/other providers, discussing with case picker/social workers/dc planners, documenting/other paperwork and evaluating patient/reviewing data Status at Discharge: Cognitive status at discharge: cognitively intact, Behavioral status at discharge: cooperative, Functional status at discharge: independent ambulation, Overall status at discharge: patient is back to baseline Quality Metrics Clinical Quality Measures [ No reported AMI, CVA or VTE this stay] Coding Level of Care Code 38483 Total time (in minutes) for Discharge: 60 Diagnoses Altered mental status R41.82 Asthma J45.909 Hypertension I10 Hyperlipidemia E78.5
[2024-03-17 14:22] LABS: Basophils # 0.1 10^3/uL (0.0-0.1); Basophils % 0.9 %; Eosinophils # 0.4 10^3/uL (0.0-0.8); Eosinophils % 3.4 %; Hematocrit 39.5 % (36-47); Lymphocytes # 3.6 10^3/uL (0.8-4.8); Lymphocytes % 34.8 %; Mean Corpuscular HGB Conc 30.1 g/dL (30-55); Mean Corpuscular Hemoglobin 25.8 pg (27-33); Mean Corpuscular Volume 85.7 fl (85-98); Mean Platelet Volume 8.5 fL (7.4-10.4); Monocytes # 0.7 10^3/uL (0.2-0.9); Monocytes % 7.2 %; Neutrophils # 5.48 10^3/uL (1.8-7.7); Neutrophils % 53.4 %; Nucleated Red Blood Cells % 0 %; Platelet Count 356 10^3/cmm (157-399); Red Blood Count 4.61 10^6/uL (3.85-5.65); Red Cell Distribution Width 14.3 % (12.1-15.1); White Blood Count 10.26 10^3/uL (3.29-11.43)
[2024-03-17 14:37] LABS: Alanine Aminotransferase 16 U/L (0-33); Albumin Level 3.7 g/dL (3.5-5.2); Alkaline Phosphatase 79 U/L (35-105); Anion Gap 15.5 (5-19); Aspartate Amino Transferase 13 U/L (0-32); Blood Urea Nitrogen 7 mg/dL (6-20); Calcium 8.6 mg/dL (8.5-10.5); Carbon Dioxide 20 mmol/L (22-29); Chloride 105 mmol/L (98-107); Creatinine Clr Calc Pharmacy 93.7114; Globulin 2.7 g/dL (1.3-4.6); Glomerular Filtration Rate 67.7 mL/min (90-130); Glucose 91 mg/dL (65-115); Osmolality Calculated 282 mOsm/kg (285-295); Potassium 3.5 mmol/L (3.5-5.1); Sodium 137 mmol/L (136-145); Total Bilirubin 0.8 mg/dL (0.15-1.2); Total Protein 6.4 g/dL (6.6-8.7)
--- NOTE | 2024-03-17 16:03 | PC.NURSE ---
Discharge paperwork discussed. All questions were answered. IV was removed. Patient taken to entrance with all belongings at 1600.
== END 2024-03-17 16:00 | disposition home or self-care (01) | DRG 948 ==
LOC: ER 20:13 → MEDSURG 21:27
PROVIDERS: Admitting Provider Student in an Organized Health Care Education/Training Program; Emergency Provider Family Medicine; Visit Provider Student in an Organized Health Care Education/Training Program
DX: R41.82 Altered mental status, unspecified (principal); J45.909 Unspecified asthma, uncomplicated; I10 Essential (primary) hypertension; E78.5 Hyperlipidemia, unspecified; E27.9 Disorder of adrenal gland, unspecified; D72.829 Elevated white blood cell count, unspecified; Z79.82 Long term (current) use of aspirin
CPT/HCPCS: 36415; 70450; 71045; 71275; 74177; 80053; 80306; 80307; 81001; 82550; 83605; 83690; 83735; 84145; 84484; 84703; 85025; 86403; 87040; 87486; 87581; 87633; 87637; 93005; 94640; 94760; 96365; 96367; 96372; 97161; 97165; 99285; J1644; J2060; J2470; J2543; J3370; J3486; J7042; J7050; J7614; J7626; J7644

== ENCOUNTER 2024-03-16 16:51 | Emergency (ER) | payer SELFPAY | END 2024-03-20 06:41 | disposition home or self-care (01) | LOC: ER 03-20 06:41 | PROVIDERS: Emergency Provider Family Medicine | DX: Z53.21 Procedure and treatment not carried out due to patient leaving prior to being seen by health care provider (principal) ==